=== PATIENT | male | born 2000 | race Caucasian/White ===

== ENCOUNTER 2018-11-04 11:17 | Emergency (ER) | payer SELFPAY ==
[~2018-11-04] VITALS: Ht 182.9 cm; Wt 54.4 kg
--- NOTE | 2018-11-04 11:34 | ED Abdominal Pain ---
General Chief Complaint: Abdominal/GI Problems Stated Complaint: ABD PAIN Source of Information: Patient, RN Notes Reviewed Exam Limitations: No Limitations History of Present Illness Date Seen by Provider: November 04, 2018 Time Seen by Provider: 11:34 Allergies and Home Medications Allergies Coded Allergies: rocuronium (Verified Allergy, Unknown, 11/04/18) Physical Exam Vital Signs Vital Signs - First Documented 11/04/18 11:50 Temp 99.2 Pulse 98 Resp 24 B/P (MAP) 92/50 Pulse Ox 100 O2 Delivery Room Air Capillary Refill : Height/Weight/BMI Height: '" Weight: lbs. oz. kg; BMI Method: Progress/Results/Core Measures Results/Orders Lab Results Laboratory Tests Test 11/04/18 11:45 11/04/18 12:44 Range/Units White Blood Count 5.6 4.3-11.0 10^3/uL Red Blood Count 4.77 4.35-5.85 10^6/uL Hemoglobin 14.3 13.3-17.7 G/DL Hematocrit 42 40-54 % Mean Corpuscular Volume 89 80-99 FL Mean Corpuscular Hemoglobin 30 25-34 PG Mean Corpuscular Hemoglobin Concent 34 32-36 G/DL Red Cell Distribution Width 12.3 10.0-14.5 % Platelet Count 261 130-400 10^3/uL Mean Platelet Volume 9.4 7.4-10.4 FL Neutrophils (%) (Auto) 63 42-75 % Lymphocytes (%) (Auto) 21 12-44 % Monocytes (%) (Auto) 11 0-12 % Eosinophils (%) (Auto) 4 0-10 % Basophils (%) (Auto) 1 0-10 % Neutrophils # (Auto) 3.5 1.8-7.8 X 10^3 Lymphocytes # (Auto) 1.2 1.0-4.0 X 10^3 Monocytes # (Auto) 0.6 0.0-1.0 X 10^3 Eosinophils # (Auto) 0.3 0.0-0.3 10^3/uL Basophils # (Auto) 0.0 0.0-0.1 10^3/uL Sodium Level 143 135-145 MMOL/L Potassium Level 4.2 3.6-5.0 MMOL/L Chloride Level 105 98-107 MMOL/L Carbon Dioxide Level 28 21-32 MMOL/L Anion Gap 10 5-14 MMOL/L Blood Urea Nitrogen 9 7-18 MG/DL Creatinine 0.78 0.60-1.30 MG/DL Estimat Glomerular Filtration Rate > 60 BUN/Creatinine Ratio 12 Glucose Level 94 70-105 MG/DL Calcium Level 9.4 8.5-10.1 MG/DL Corrected Calcium 8.5-10.1 MG/DL Total Bilirubin 0.4 0.1-1.0 MG/DL Aspartate Amino Transf (AST/SGOT) 12 5-34 U/L Alanine Aminotransferase (ALT/SGPT) 8 0-55 U/L Alkaline Phosphatase 116 40-136 U/L Total Protein 6.8 6.4-8.2 GM/DL Albumin 4.8 H 3.2-4.5 GM/DL Urine Color YELLOW Urine Clarity CLEAR Urine pH 7.5 5-9 Urine Specific [place] 1.010 L 1.016-1.022 Urine Protein NEGATIVE NEGATIVE Urine Glucose (UA) NEGATIVE NEGATIVE Urine Ketones NEGATIVE NEGATIVE Urine Nitrite NEGATIVE NEGATIVE Urine Bilirubin NEGATIVE NEGATIVE Urine Urobilinogen 0.2 NORMAL MG/DL Urine Leukocyte Esterase NEGATIVE NEGATIVE Urine RBC (Auto) NEGATIVE NEGATIVE Urine RBC NONE /HPF Urine WBC NONE /HPF Urine Squamous Epithelial Cells RARE /HPF Urine Crystals NONE /LPF Urine Bacteria NONE /HPF Urine Casts NONE /LPF Urine Mucus NEGATIVE /LPF Urine Culture Indicated NO Urine Opiates Screen NEGATIVE NEGATIVE Urine Oxycodone Screen NEGATIVE NEGATIVE Urine Methadone Screen NEGATIVE NEGATIVE Urine Propoxyphene Screen NEGATIVE NEGATIVE Urine Barbiturates Screen NEGATIVE NEGATIVE Ur Tricyclic Antidepressants Screen NEGATIVE NEGATIVE Urine Phencyclidine Screen NEGATIVE NEGATIVE Urine Amphetamines Screen NEGATIVE NEGATIVE Urine Methamphetamines Screen NEGATIVE NEGATIVE Urine Benzodiazepines Screen NEGATIVE NEGATIVE Urine Cocaine Screen NEGATIVE NEGATIVE Urine Cannabinoids Screen POSITIVE H NEGATIVE My Orders Orders - LAURA GARCIA DO Cbc With Automated Diff (11/04/18 11:35) Comprehensive Metabolic Panel (11/04/18 11:35) Ua Culture If Indicated (11/04/18 11:35) Ed Iv/Invasive Line Start (11/04/18 11:35) Lactated Ringers (Lr 1000 Ml Iv Solution (11/04/18 11:45) Drug Screen Stat (Urine) (11/04/18 12:39) Ketorolac Injection (Toradol Injection) (11/04/18 12:45) Ct Abdomen/Pelvis Wo (11/04/18 12:46) Medications Given in ED Current Medications Medications Dose Ordered Sig/Tavo Route Start Time Stop Time Status Last Admin Dose Admin Ketorolac Tromethamine 15 mg ONCE ONCE IVP 11/04/18 12:45 11/04/18 12:46 DC 11/04/18 13:00 15 MG Vital Signs/I&O 11/04/18 11:50 Temp 99.2 Pulse 98 Resp 24 B/P (MAP) 92/50 Pulse Ox 100 O2 Delivery Room Air Departure Impression Primary Impression: Abdominal pain in male Additional Impression: Metallic foreign body colon Disposition: HOME, SELF-CARE Condition: Improved Departure-Patient Inst. Referrals: NO,LOCAL PHYSICIAN (PCP/Family) Primary Care Physician Patient Instructions: Acute Abdomen (Belly Pain), Adult (DC) Scripts Meloxicam (Mobic) 7.5 Mg Tablet 7.5 MG PO Q12H PRN for ABDOMINAL PAIN, #20 TAB 0 Refills Prov: LAURA GARCIA DO 11/04/18 LAURA GARCIA DO November 04, 2018 11:34
[2018-11-04] MEDS ORDERED: LACTATED RINGERS 1,000 ML IV SCH (11:45)
[2018-11-04 11:59] LABS: HEMATOCRIT 42 % (40-54); HEMOGLOBIN 14.3 G/DL (13.3-17.7); MEAN CORPUSCULAR HEMOGLOBIN 30 PG (25-34); MEAN CORPUSCULAR HGB CONC 34 G/DL (32-36); MEAN CORPUSCULAR VOLUME 89 FL (80-99); MEAN PLATELET VOLUME 9.4 FL (7.4-10.4); NEUTROPHILS % (AUTO) 63 % (42-75); PLATELET COUNT 261 10^3/uL (130-400); RED CELL DISTRIBUTION WIDTH 12.3 % (10.0-14.5); WHITE BLOOD COUNT 5.6 10^3/uL (4.3-11.0)
[2018-11-04 12:00] LABS: BASOPHILS % (AUTO) 1 % (0-10); EOSINOPHILS # (AUTO) 0.3 10^3/uL (0.0-0.3); EOSINOPHILS % (AUTO) 4 % (0-10); LYMPHOCYTES # (AUTO) 1.2 X 10^3 (1.0-4.0); LYMPHOCYTES % (AUTO) 21 % (12-44); MONOCYTES # (AUTO) 0.6 X 10^3 (0.0-1.0); MONOCYTES % (AUTO) 11 % (0-12); NEUTROPHILS # (AUTO) 3.5 X 10^3 (1.8-7.8)
[2018-11-04 12:21] LABS: ALANINE AMINOTRANSFERASE 8 U/L (0-55); ALKALINE PHOSPHATASE 116 U/L (40-136); BILIRUBIN,TOTAL 0.4 MG/DL (0.1-1.0); BUN/CREATININE RATIO 12; CALCIUM 9.4 MG/DL (8.5-10.1); CARBON DIOXIDE 28 MMOL/L (21-32); CHLORIDE 105 MMOL/L (98-107); CREATININE SERUM 0.78 MG/DL (0.60-1.30); GFR ESTIMATED > 60; GLUCOSE 94 MG/DL (70-105); POTASSIUM 4.2 MMOL/L (3.6-5.0); SODIUM 143 MMOL/L (135-145)
[2018-11-04 12:22] LABS: ALBUMIN 4.8 GM/DL (3.2-4.5); TOTAL PROTEIN 6.8 GM/DL (6.4-8.2)
[2018-11-04] MEDS ORDERED: KETOROLAC 30 MG/ML VIAL IVP ONE (12:45)
[2018-11-04 13:02] LABS: AMPHETAMINE SCREEN, URINE NEGATIVE (NEGATIVE); BARBITURATE SCREEN URINE NEGATIVE (NEGATIVE); BENZODIAZEPINES SCREEN URINE NEGATIVE (NEGATIVE); BILIRUBIN,URINE NEGATIVE (NEGATIVE); CANNABINOID SCREEN, URINE POSITIVE (NEGATIVE); CLARITY,URINE CLEAR; COCAINE SCREEN URINE NEGATIVE (NEGATIVE); COLOR,URINE YELLOW; GLUCOSE, URINE (UA) NEGATIVE (NEGATIVE); KETONES,URINE NEGATIVE (NEGATIVE); LEUKOCYTE ESTERASE ,URINE NEGATIVE (NEGATIVE); METHADONE STAT NEGATIVE (NEGATIVE); METHAMPHETAMINE SCREEN URINE S NEGATIVE (NEGATIVE); NITRITE,URINE NEGATIVE (NEGATIVE); OPIATE SCREEN URINE NEGATIVE (NEGATIVE); OXYCODONE STAT NEGATIVE (NEGATIVE); PH,URINE 7.5 (5-9); PROPOXYPHENE STAT NEGATIVE (NEGATIVE); PROTEIN,URINE NEGATIVE (NEGATIVE); SQUAMOUS EPITHELIAL CELL,UR RARE /HPF; TRICYCLIC ANTIDEPRESSANTS SCRE NEGATIVE (NEGATIVE); UROBILINOGEN,URINE 0.2 MG/DL (NORMAL)
--- NOTE | 2018-11-04 13:41 | Diagnostic Imaging Report ---
PROCEDURE: CT abdomen and pelvis without contrast. TECHNIQUE: Multiple contiguous axial images were obtained through the abdomen and pelvis without the use of intravenous contrast. Auto Exposure Controls were utilized during the CT exam to meet ALARA standards for radiation dose reduction. INDICATION: Central and left abdominal pain. FINDINGS: Lung bases are clear. The heart is normal in size. There is mild pectus excavatum. The liver demonstrates no focal lesions. The spleen is normal. The pancreas is normal. The adrenal glands appear normal. The kidneys demonstrate no hydronephrosis. No renal calculi are seen. The bowel loops are nondistended without obstruction. The appendix is normal without evidence of appendicitis. There is a 5 mm metal density foreign body in the right lower quadrant of the abdomen, which appears to be within the cecum. The patient reports no prior surgeries. There is a small amount of free fluid in the pelvis. No focal bowel wall thickening is seen. No soft tissue gas is seen. No acute osseous abnormality is seen. IMPRESSION: 1. 5 mm metal foreign body in the right lower quadrant appears to be within the cecum. No bowel obstruction or bowel wall thickening is seen. 2. Small amount of free fluid in the pelvis. No source is seen. There is no free air. 3. Mild pectus excavatum. Dictated by: Dictated on workstation # [id number]
[2018-11-04] MEDS ORDERED: MELO-170 PO (14:02)
== END 2018-11-04 14:12 | disposition home or self-care (01) ==
LOC: EDUNIT# 11:17 → ER FS 11:19
DX: T18.4XXA Foreign body in colon, initial encounter (principal); R10.9 Unspecified abdominal pain; Z88.8 Allergy status to other drugs, medicaments and biological substances
CPT/HCPCS: 36415; 74176; 80053; 80306; 81000; 85025; 96361; 96374

== ENCOUNTER 2018-12-06 19:31 | Emergency (ER) | payer SELFPAY ==
[~2018-12-06] VITALS: Ht 182.9 cm; Wt 56.2 kg
[~2018-12-06 19:31] MED LIST: MELO-170 PO
--- OUTSIDE RECORDS SUMMARY | 2018-12-06 19:37 | XMS REPORT | Continuity of Care Document ---
Author Organization Unknown Address Unknown Allergies Active Description Code Type Severity Reaction Onset Reported/Identified Relationship to Patient Clinical Status Yes No Known Drug Allergies [id number] Drug Allergy Unknown N/A 11/04/2018 Yes rocuronium [id number] Drug Allergy Unknown N/A 11/04/2018 Medications There is no data. Problems Date Dx Coded Attending Type Code Diagnosis Diagnosed By 11/07/2018 LAURA GARCIA DO, Ot R10.9 UNSPECIFIED ABDOMINAL PAIN 11/07/2018 LAURA GARCIA DO, Ot T18.4XXA FOREIGN BODY IN COLON, INITIAL ENCOUNTER 11/07/2018 LAURA GARCIA DO, Ot Z88.8 ALLERGY STATUS TO OTH DRUG/MEDS/BIOL SUB Procedures There is no data. Results Test Result Range Complete blood count (CBC) with automated white blood cell (WBC) differential - 11/04/18 11:45 Blood leukocytes automated count (number/volume) 5.6 10*3/uL 4.3-11.0 Blood erythrocytes automated count (number/volume) 4.77 10*6/uL 4.35-5.85 Venous blood hemoglobin measurement (mass/volume) 14.3 g/dL 13.3-17.7 Blood hematocrit (volume fraction) 42 % 40-54 Automated erythrocyte mean corpuscular volume 89 [foz_us] 80-99 Automated erythrocyte mean corpuscular hemoglobin (mass per erythrocyte) 30 pg 25-34 Automated erythrocyte mean corpuscular hemoglobin concentration measurement (mass/volume) 34 g/dL 32-36 Automated erythrocyte distribution width ratio 12.3 % 10.0- 14.5 Automated blood platelet count (count/volume) 261 10*3/uL 130-400 Automated blood platelet mean volume measurement 9.4 [foz_us] 7.4-10.4 Automated blood neutrophils/100 leukocytes 63 % 42-75 Automated blood lymphocytes/100 leukocytes 21 % 12-44 Blood monocytes/100 leukocytes 11 % 0-12 Automated blood eosinophils/100 leukocytes 4 % 0-10 Automated blood basophils/100 leukocytes 1 % 0-10 Blood neutrophils automated count (number/volume) 3.5 10*3 1.8-7.8 Blood lymphocytes automated count (number/volume) 1.2 10*3 1.0-4.0 Blood monocytes automated count (number/volume) 0.6 10*3 0.0- 1.0 Automated eosinophil count 0.3 10*3/uL 0.0-0.3 Automated blood basophil count (count/volume) 0.0 10*3/uL 0.0-0.1 Comprehensive metabolic panel - 11/04/18 11:45 Serum or plasma sodium measurement (moles/volume) 143 mmol/L 135-145 Serum or plasma potassium measurement (moles/volume) 4.2 mmol/L 3.6-5.0 Serum or plasma chloride measurement (moles/volume) 105 mmol/L 98-107 Carbon dioxide 28 mmol/L 21-32 Serum or plasma anion gap determination (moles/volume) 10 mmol/L 5-14 Serum or plasma urea nitrogen measurement (mass/volume) 9 mg/dL 7-18 Serum or plasma creatinine measurement (mass/volume) 0.78 mg/dL 0.60-1.30 Serum or plasma urea nitrogen/creatinine mass ratio 12 NRG Serum or plasma creatinine measurement with calculation of estimated glomerular filtration rate > NRG Serum or plasma glucose measurement (mass/volume) 94 mg/dL 70-105 Serum or plasma calcium measurement (mass/volume) 9.4 mg/dL 8.5-10.1 Serum or plasma total bilirubin measurement (mass/volume) 0.4 mg/dL 0.1-1.0 Serum or plasma alkaline phosphatase measurement (enzymatic activity/volume) 116 U/L 40-136 Serum or plasma aspartate aminotransferase measurement (enzymatic activity/volume) 12 U/L 5-34 Serum or plasma alanine aminotransferase measurement (enzymatic activity/volume) 8 U/L 0-55 Serum or plasma protein measurement (mass/volume) 6.8 g/dL 6.4-8.2 Serum or plasma albumin measurement (mass/volume) 4.8 g/dL 3.2-4.5 Urine drug screening test - 11/04/18 12:44 Urine phencyclidine detection by screening method NEGATIVE NEGATIVE Urine benzodiazepines detection by screening method NEGATIVE NEGATIVE Urine cocaine detection NEGATIVE NEGATIVE Urine amphetamines detection by screening method NEGATIVE NEGATIVE Urine methamphetamine detection by screening method NEGATIVE NEGATIVE Urine cannabinoids detection by screening method POSITIVE NEGATIVE Urine opiates detection by screening method NEGATIVE NEGATIVE Urine barbiturates detection NEGATIVE NEGATIVE Screening urine tricyclic antidepressants detection NEGATIVE NEGATIVE Urine methadone detection by screening method NEGATIVE NEGATIVE Urine oxycodone detection NEGATIVE NEGATIVE Urine propoxyphene detection NEGATIVE NEGATIVE Complete urinalysis with reflex to culture - 11/04/18 12:44 Urine color determination YELLOW NRG Urine clarity determination CLEAR NRG Urine pH measurement by test strip 7.5 5-9 Specific gravity of urine by test strip 1.010 1.016-1.022 Urine protein assay by test strip, semi-quantitative NEGATIVE NEGATIVE Urine glucose detection by automated test strip NEGATIVE NEGATIVE Erythrocytes detection in urine sediment by light microscopy NEGATIVE NEGATIVE Urine ketones detection by automated test strip NEGATIVE NEGATIVE Urine nitrite detection by test strip NEGATIVE NEGATIVE Urine total bilirubin detection by test strip NEGATIVE NEGATIVE Urine urobilinogen measurement by automated test strip (mass/volume) 0.2 mg/dL NORMAL Urine leukocyte esterase detection by dipstick NEGATIVE NEGATIVE Automated urine sediment erythrocyte count by microscopy (number/high power field) NONE NRG Automated urine sediment leukocyte count by microscopy (number/high power field) NONE NRG Bacteria detection in urine sediment by light microscopy NONE NRG Squamous epithelial cells detection in urine sediment by light microscopy RARE NRG Crystals detection in urine sediment by light microscopy NONE NRG Casts detection in urine sediment by light microscopy NONE NRG Mucus detection in urine sediment by light microscopy NEGATIVE NRG Complete urinalysis with reflex to culture NO NRG Encounters ACCT No. Visit Date/Time Discharge Status Pt. Type Provider Facility Loc./Unit Complaint [id number] 11/04/2018 11:19:00 11/04/2018 14:12:00 DIS Outpatient LAURA GARCIA DO [facility] ER FS ABD PAIN
--- NOTE | 2018-12-06 19:46 | ED GU-Female ---
General Chief Complaint: - Urinary Stated Complaint: URINARY PAIN Source: patient Exam Limitations: no limitations History of Present Illness Date Seen by Provider: Dec 06, 2018 Time Seen by Provider: 19:50 Initial Comments 17-year-old male presents with dysuria. He reports been gone about 3-4 days. Reports he has burning and stinging every time he urinates or ejaculates. He denies any fever,, nausea, vomiting, swelling of his scrotum or testicular pain. He denies any STD exposure. Allergies and Home Medications Allergies Coded Allergies: rocuronium (Verified Allergy, Unknown, 11/04/18) Home Medications Doxycycline Hyclate 100 Mg Tablet, 100 MG PO BID Prescribed by: JANINA ALCANTAR on 12/06/182018 Meloxicam 7.5 Mg Tablet, 7.5 MG PO Q12H PRN for ABDOMINAL PAIN Prescribed by: LAURA GARCIA on 11/04/18 1402 Patient Home Medication List Home Medication List Reviewed: Yes Review of Systems Review of Systems Constitutional: No chills, No fever Genitourinary: dysuria, pain All Other Systemes Reviewed Negative Unless Noted: Yes Past Vbjnalf-Cstaag-Udmohl Hx Past Med/Social Hx: Reviewed Nursing Past Med/Soc Hx Patient Social History Recent Hopitalizations: No Seasonal Allergies Seasonal Allergies: No Past Medical History Surgeries: No Respiratory: No Cardiac: No Neurological: No Genitourinary: No Gastrointestinal: No Musculoskeletal: No Endocrine: No HEENT: No Cancer: No Psychosocial: Yes Depression Integumentary: No Physical Exam Vital Signs Vital Signs - First Documented 12/06/18 19:40 Temp 97.1 Pulse 65 Resp 16 B/P (MAP) 110/55 Pulse Ox 100 O2 Delivery Room Air Capillary Refill : Height, Weight, BMI Height: 6'0" Weight: 120lbs. oz. [id number]; 16.27 BMI Method:Stated General Appearance: WD/WN, no apparent distress Cardiovascular: regular rate, rhythm, no edema Respiratory: chest non-tender Gastrointestinal: non tender Back: no CVA tenderness Extremities: normal range of motion, non-tender Neurologic/Psychiatric: site leasing agent II-XII nml as tested, no motor/sensory deficits, alert, oriented x 3 Progress/Results/Core Measures Suspected Sepsis SIRS Temperature: Pulse: Respiratory Rate: Blood Pressure / Mean: Results/Orders Lab Results Laboratory Tests Test 12/06/18 19:40 Range/Units Urine Color YELLOW Urine Clarity CLEAR Urine pH 6.0 5-9 Urine Specific [place] 1.025 H 1.016-1.022 Urine Protein NEGATIVE NEGATIVE Urine Glucose (UA) NEGATIVE NEGATIVE Urine Ketones NEGATIVE NEGATIVE Urine Nitrite NEGATIVE NEGATIVE Urine Bilirubin NEGATIVE NEGATIVE Urine Urobilinogen 0.2 NORMAL MG/DL Urine Leukocyte Esterase NEGATIVE NEGATIVE Urine RBC (Auto) NEGATIVE NEGATIVE Urine RBC 0-2 /HPF Urine WBC 5-10 H /HPF Urine Squamous Epithelial Cells 0-2 /HPF Urine Crystals NONE /LPF Urine Bacteria FEW H /HPF Urine Casts NONE /LPF Urine Mucus MODERATE H /LPF Urine Culture Indicated YES My Orders Orders - ALCANTAR,JANINA L DO Chlamydia Trachomatis Urine (12/06/18 19:46) Neis Andrei Dna Urine Test (12/06/18 19:46) Ua Culture If Indicated (12/06/18 19:46) Urine Culture (12/06/18 19:40) Ceftriaxone For Im Use (Rocephin For Im (12/07/18 09:00) Lidocaine 1% Inj 20 Ml (Xylocaine 1% Inj (12/06/18 20:15) Ceftriaxone For Im Use (Rocephin For Im (12/06/18 20:15) Medications Given in ED Current Medications Medications Dose Ordered Sig/Tavo Route Start Time Stop Time Status Last Admin Dose Admin Lidocaine HCl 2.1 ml ONCE ONCE INJ 12/06/18 20:15 12/06/18 20:16 DC 12/06/18 20:25 2.1 ML Vital Signs/I&O 12/06/18 12/06/18 19:40 20:29 Temp 97.1 Pulse 65 65 Resp 16 18 B/P (MAP) 110/55 Pulse Ox 100 100 O2 Delivery Room Air Room Air Capillary Refill : Departure Impression Primary Impression: Urinary tract infection Qualified Codes: N39.0 - Urinary tract infection, site not specified Additional Impression: Orchitis and epididymitis Disposition: 01 HOME, SELF-CARE Condition: Stable Departure-Patient Inst. Referrals: NO,LOCAL PHYSICIAN (PCP/Family) Primary Care Physician Patient Instructions: Epididymitis (DC), Urinary Tract Infection, Adult (DC) Scripts Doxycycline Hyclate (Doxycycline Hyclate) 100 Mg Tablet 100 MG PO BID, #20 TAB 0 Refills Prov: ALCANTAR,JANINA L DO 12/06/18 JANINA ALCANTAR DO Dec 06, 2018 19:46
[2018-12-06 20:06] LABS: BILIRUBIN,URINE NEGATIVE (NEGATIVE); CLARITY,URINE CLEAR; COLOR,URINE YELLOW; GLUCOSE, URINE (UA) NEGATIVE (NEGATIVE); KETONES,URINE NEGATIVE (NEGATIVE); LEUKOCYTE ESTERASE ,URINE NEGATIVE (NEGATIVE); NITRITE,URINE NEGATIVE (NEGATIVE); PROTEIN,URINE NEGATIVE (NEGATIVE); RBC,URINE 0-2 /HPF; UROBILINOGEN,URINE 0.2 MG/DL (NORMAL)
[2018-12-06 20:07] LABS: BACTERIA,URINE FEW /HPF; SQUAMOUS EPITHELIAL CELL,UR 0-2 /HPF
[2018-12-06] MEDS ORDERED: LIDOCAINE 1% INJ 20 ML 20 ML VIAL INJ ONE (20:15)
[2018-12-06] MEDS ORDERED: cefTRIAXone 1,000 MG/2.86 ml vial (IM ONLY) ONE (20:15)
[2018-12-06] MEDS ORDERED: DOXY100T2 PO (20:19)
[2018-12-07] MEDS ORDERED: cefTRIAXone 1,000 MG/2.86 ml vial (IM ONLY) IM SCH (09:00)
== END 2018-12-06 20:30 | disposition home or self-care (01) ==
LOC: EDUNIT# 19:31 → ER FS 19:32
DX: N39.0 Urinary tract infection, site not specified (principal); N45.3 Epididymo-orchitis; F32.9 Major depressive disorder, single episode, unspecified; Z88.8 Allergy status to other drugs, medicaments and biological substances
CPT/HCPCS: 36415; 81000; 87088; 87491; 87591; 99284

== ENCOUNTER 2019-01-25 20:36 | Emergency (ER) | payer SELFPAY ==
[~2019-01-25] VITALS: Ht 177.8 cm; Wt 56.7 kg
[~2019-01-25 20:36] MED LIST changes: +DOXY100T2 PO
[2019-01-25] MEDS ORDERED: FAMOTIDINE 20 MG (PEPCID) TABLET PO STA (20:46)
[2019-01-25] MEDS ORDERED: LACTATED RINGERS 1,000 ML IV ONE (20:46)
--- NOTE | 2019-01-25 20:54 | ED Abdominal Pain ---
General Chief Complaint: Chest Pain Stated Complaint: CHEST PAIN,WEAKNESS,DIZZINESS Source of Information: Patient, Other Exam Limitations: No Limitations History of Present Illness Date Seen by Provider: Jan 25, 2019 Time Seen by Provider: 20:40 Initial Comments The patient resents to ER by private conveyance with his significant other and chief complaint that he's not felt well for the past day or so and since 6:00 he's been having nausea without vomiting and abdominal pain indicating between his epigastric region and suprapubic region midline. He says he had a normal bowel movement earlier this morning. He does not have constipation, diarrhea fevers chills cough shortness of breath. He has no history of abdominal surgeries or recent trauma. No sick contacts that he is aware of. He does not take anything for the symptoms. He does not think he has a history of acid reflux, pancreatitis or gallbladder disease. He does not follow routinely with a physician for any reason. He does not take any medications routinely. He says he is having chest pain but continually indicates that his pain is in the abdominal region. Allergies and Home Medications Allergies Coded Allergies: rocuronium (Verified Allergy, Unknown, 11/04/18) Home Medications Doxycycline Hyclate 100 Mg Tablet, 100 MG PO BID Prescribed by: JANINA ALCANTAR on 12/06/182018 Meloxicam 7.5 Mg Tablet, 7.5 MG PO Q12H PRN for ABDOMINAL PAIN Prescribed by: LAURA GARCIA on 11/04/18 1402 Patient Home Medication List Home Medication List Reviewed: Yes Review of Systems Review of Systems Constitutional: No chills, No diaphoresis EENTM: No Blurred Vision, No Double Vision Respiratory: Denies Cough, Denies Shortness of Air Cardiovascular: Denies Chest Pain, Denies Edema Gastrointestinal: See HPI, Abdominal Pain; Denies Constipated, Denies Diarrhea; Nausea; Denies Vomiting Genitourinary: Denies Burning, Denies Discharge Musculoskeletal: No back pain, No joint pain Past Oygclhd-Tqqkle-Qkdaba Hx Patient Social History Alcohol Use: Occasionally Uses Alcohol Beverage of Choice: Beer, Cheap Liquor Recreational Drug Use: Yes Drug of Choice: Occ MJ Smoking Status: Current Everyday Smoker Type Used: Cigarettes Recent Foreign Travel: No Contact w/Someone Who Travel: No Recent Hopitalizations: No Seasonal Allergies Seasonal Allergies: No Past Medical History Surgeries: No Respiratory: No Cardiac: No Neurological: No Genitourinary: No Gastrointestinal: No Musculoskeletal: No Endocrine: No HEENT: No Cancer: No Psychosocial: Yes Depression Integumentary: No Blood Disorders: No Physical Exam Vital Signs Vital Signs - First Documented 01/25/19 20:40 Temp 98.1 Pulse 68 Resp 16 B/P (MAP) 120/73 (89) Pulse Ox 100 O2 Delivery Room Air Capillary Refill : Height/Weight/BMI Height: 6'0" Weight: 124lbs. oz. [id number]; 16.82 BMI Method:Stated General Appearance: WD/WN, mild distress HEENT: PERRL/EOMI, normal ENT inspection, pharynx normal Neck: full range of motion, normal inspection Respiratory: chest non-tender, lungs clear, normal breath sounds, no respiratory distress, no accessory muscle use, other (pectus excavatum) Cardiovascular: normal peripheral pulses, regular rate, rhythm, no edema Peripheral Pulses: 2+ Radial Pulses (R), 2+ Radial Pulses (L) Gastrointestinal: normal bowel sounds (quiescent), guarding, tenderness (all 4 quadrants), other (psoas sign bilaterally positive. No other mesenteric signs.) Extremities: normal inspection, normal capillary refill Back: normal inspection, no CVA tenderness, no vertebral tenderness Neurologic/Psychiatric: alert, normal mood/affect, oriented x 3, other (normal gait) Skin: normal color, warm/dry Progress/Results/Core Measures Results/Orders Lab Results Laboratory Tests Test 01/25/19 20:42 Range/Units White Blood Count 8.7 4.3-11.0 10^3/uL Red Blood Count 5.00 4.35-5.85 10^6/uL Hemoglobin 14.9 13.3-17.7 G/DL Hematocrit 45 40-54 % Mean Corpuscular Volume 89 80-99 FL Mean Corpuscular Hemoglobin 30 25-34 PG Mean Corpuscular Hemoglobin Concent 33 32-36 G/DL Red Cell Distribution Width 12.4 10.0-14.5 % Platelet Count 290 130-400 10^3/uL Mean Platelet Volume 9.2 7.4-10.4 FL Neutrophils (%) (Auto) 49 42-75 % Lymphocytes (%) (Auto) 31 12-44 % Monocytes (%) (Auto) 9 0-12 % Eosinophils (%) (Auto) 10 0-10 % Basophils (%) (Auto) 1 0-10 % Neutrophils # (Auto) 4.3 1.8-7.8 X 10^3 Lymphocytes # (Auto) 2.7 1.0-4.0 X 10^3 Monocytes # (Auto) 0.8 0.0-1.0 X 10^3 Eosinophils # (Auto) 0.9 H 0.0-0.3 10^3/uL Basophils # (Auto) 0.1 0.0-0.1 10^3/uL Urine Color YELLOW Urine Clarity CLEAR Urine pH 6.0 5-9 Urine Specific [place] 1.025 H 1.016-1.022 Urine Protein NEGATIVE NEGATIVE Urine Glucose (UA) NEGATIVE NEGATIVE Urine Ketones NEGATIVE NEGATIVE Urine Nitrite NEGATIVE NEGATIVE Urine Bilirubin NEGATIVE NEGATIVE Urine Urobilinogen 0.2 NORMAL MG/DL Urine Leukocyte Esterase NEGATIVE NEGATIVE Urine RBC (Auto) NEGATIVE NEGATIVE Urine RBC NONE /HPF Urine WBC 0-2 /HPF Urine Squamous Epithelial Cells 2-5 /HPF Urine Crystals NONE /LPF Urine Bacteria NEGATIVE /HPF Urine Casts NONE /LPF Urine Mucus MODERATE H /LPF Urine Culture Indicated NO Sodium Level 142 135-145 MMOL/L Potassium Level 4.0 3.6-5.0 MMOL/L Chloride Level 99 98-107 MMOL/L Carbon Dioxide Level 28 21-32 MMOL/L Anion Gap 15 H 5-14 MMOL/L Blood Urea Nitrogen 12 7-18 MG/DL Creatinine 0.92 0.60-1.30 MG/DL Estimat Glomerular Filtration Rate > 60 BUN/Creatinine Ratio 13 Glucose Level 105 70-105 MG/DL Calcium Level 9.9 8.5-10.1 MG/DL Corrected Calcium 8.5-10.1 MG/DL Magnesium Level 2.0 1.6-2.4 MG/DL Total Bilirubin 0.3 0.1-1.0 MG/DL Aspartate Amino Transf (AST/SGOT) 15 5-34 U/L Alanine Aminotransferase (ALT/SGPT) 11 0-55 U/L Alkaline Phosphatase 119 40-136 U/L Total Protein 7.6 6.4-8.2 GM/DL Albumin 4.8 H 3.2-4.5 GM/DL Lipase 36 8-78 U/L Urine Opiates Screen NEGATIVE NEGATIVE Urine Oxycodone Screen NEGATIVE NEGATIVE Urine Methadone Screen NEGATIVE NEGATIVE Urine Propoxyphene Screen NEGATIVE NEGATIVE Urine Barbiturates Screen NEGATIVE NEGATIVE Ur Tricyclic Antidepressants Screen NEGATIVE NEGATIVE Urine Phencyclidine Screen NEGATIVE NEGATIVE Urine Amphetamines Screen NEGATIVE NEGATIVE Urine Methamphetamines Screen NEGATIVE NEGATIVE Urine Benzodiazepines Screen NEGATIVE NEGATIVE Urine Cocaine Screen NEGATIVE NEGATIVE Urine Cannabinoids Screen POSITIVE H NEGATIVE My Orders Orders - SAMANTA SERRA Cbc With Automated Diff (01/25/19 20:46) Comprehensive Metabolic Panel (01/25/19 20:46) Drug Screen Stat (Urine) (01/25/19 20:46) Lipase (01/25/19 20:46) Magnesium (01/25/19 20:46) Ua Culture If Indicated (01/25/19 20:46) Chest Pa/Lat (2 View) (01/25/19 20:46) Ed Iv/Invasive Line Start (01/25/19 20:46) Lactated Ringers (Lr 1000 Ml Iv Solution (01/25/19 20:46) Lidocaine 2% Viscous 15 Ml (Xylocaine Vi (01/25/19 21:00) Famotidine Tablet (Pepcid Tablet) (01/25/19 20:46) Antacid Suspension (Mylanta Suspension (01/25/19 21:00) Ondansetron Injection (Zofran Injectio (01/25/19 21:00) Medications Given in ED Current Medications Medications Dose Ordered Sig/Tavo Route Start Time Stop Time Status Last Admin Dose Admin Al Hydrox/Mg Hydrox/Simethicone 30 ml ONCE ONCE PO 01/25/19 21:00 01/25/19 21:01 DC 01/25/19 20:57 30 ML Lactated Ringer's 1,000 ml @ 0 mls/hr Q0M ONCE IV 01/25/19 20:46 01/25/19 20:49 DC 01/25/19 20:57 999 MLS/HR Lidocaine HCl 15 ml ONCE ONCE PO 01/25/19 21:00 01/25/19 21:01 DC 01/25/19 20:57 15 ML Ondansetron HCl 4 mg ONCE ONCE IVP 01/25/19 21:00 01/25/19 21:01 DC 01/25/19 20:57 4 MG Vital Signs/I&O 01/25/19 20:40 Temp 98.1 Pulse 68 Resp 16 B/P (MAP) 120/73 (89) Pulse Ox 100 O2 Delivery Room Air Progress Progress Note #1: Time: 20:52 Progress Note Vital signs are normal but his pain is sharp stabbing intermittent and he's having a tenderness belly that it would be reasonable to obtain labs and entertain imaging. We'll start with a GI cocktail. If that does not help then we'll trial Toradol. Plan to give him Zofran and a liter of lactated Ringer's as dehydration working at [employer] is also in the differential. Urinalysis, drug screen and will plan to reexamine. His chest is not tender and he has good breath sounds bilaterally with good vital signs but he does have a history of this family having pneumothoraces so a chest x-ray can rule out a referred pain. Progress Note #2: Time: 21:21 Progress Note GI cocktail significantly improved his pain. He's no longer having nausea after using Zofran. Perhaps is GI related. We'll give him some Toradol also get some rest tonight put him on omeprazole for a couple weeks and give him a prescription for Zofran. Instructions follow-up with primary care if not seeing improvement by Saturday. Diagnostic Imaging Diagonstic Imaging: Xray Plain Films/CT/US/NM/MRI: chest (2v) Comments NAME: TORY LIMA MED REC#: [id number] PT STATUS: REG ER : 2000 PHYSICIAN: SAMANTA SERRA MD ADMIT DATE: 01/25/19/ER FS Signed Date of Exam:01/25/19 CHEST PA/LAT (2 VIEW) INDICATION: Epigastric pain COMPARISON: None. FINDINGS: Frontal and lateral views the chest demonstrate clear lungs bilaterally. The heart size is normal. There is no pneumothorax. Osseous structures are normal. IMPRESSION: No acute findings. Normal chest. Dictated by: Dictated on workstation # [id number] Dict: 01/25/192099 Trans: 01/25/192099 [facility] [phone] Interpreted by: SHAY GARCIA Electronically signed by: SHAY GARCIA 01/25/192099 Reviewed: Reviewed by Me Departure Impression Primary Impression: Gastroenteritis Additional Impression: Gastritis Qualified Codes: K29.00 - Acute gastritis without bleeding Disposition: 01 HOME, SELF-CARE Condition: Improved Departure-Patient Inst. Decision time for Depature: 21:22 Referrals: MIGUEL WHITMORE MD NO,LOCAL PHYSICIAN (PCP) Primary Care Physician Patient Instructions: Gastritis (DC) Add. Discharge Instructions: If you have pain you some Tums, Rolaids or Mylanta and try Tylenol 1000 mg every 8 hours in addition to ibuprofen 800 mg every 8 hours when needed. security shift supervisor the omeprazole and take 40 mg tablet daily for the next 2 weeks. If you have nausea then please take one tablet of Zofran/ondansetron and place under your tongue every 6 hours as needed. If you're not seeing improvement by Saturday, 3 days from now please plan to fo llow up with your primary care doctor for further evaluation. If you develop severe, intractable pain, nausea or fever especially above 102.5F then you should consider returning to the ER for further evaluation. All discharge instructions reviewed with patient and/or family. Voiced understanding. Scripts Ondansetron (Ondansetron Odt) 4 Mg Tab.rapdis 4 MG PO Q6H PRN for NAUSEA/VOMITING, #8 TAB 0 Refills Prov: SAMANTA SERRA 01/25/19 Omeprazole (Omeprazole) 40 Mg Capsule.dr 40 MG PO DAILY for 14 Days, #14 CAP 0 Refills Prov: SAMANTA SERRA 01/25/19 Work/School Note: Work Release Form Date Seen in the Emergency Department: Jan 25, 2019 Return to Work: Jan 26, 2019 Restrictions: No Restrictions SAMANTA SERRA Jan 25, 2019 20:54
[2019-01-25] MEDS ORDERED: ONDANSETRON 4 MG/2 ML (SDV) Z0FRAN IVP ONE (21:00)
[2019-01-25] MEDS ORDERED: LIDOCAINE 2% VISCOUS 15 ML UDC PO ONE (21:00)
[2019-01-25] MEDS ORDERED: ANTACID SUSP 30 ML UDC (MYLANTA) PO ONE (21:00)
--- NOTE | 2019-01-25 21:03 | Diagnostic Imaging Report ---
INDICATION: Epigastric pain COMPARISON: None. FINDINGS: Frontal and lateral views the chest demonstrate clear lungs bilaterally. The heart size is normal. There is no pneumothorax. Osseous structures are normal. IMPRESSION: No acute findings. Normal chest. Dictated by: Dictated on workstation # [id number]
[2019-01-25 21:08] LABS: BACTERIA,URINE NEGATIVE /HPF; BILIRUBIN,URINE NEGATIVE (NEGATIVE); CLARITY,URINE CLEAR; COLOR,URINE YELLOW; GLUCOSE, URINE (UA) NEGATIVE (NEGATIVE); KETONES,URINE NEGATIVE (NEGATIVE); LEUKOCYTE ESTERASE ,URINE NEGATIVE (NEGATIVE); NITRITE,URINE NEGATIVE (NEGATIVE); PROTEIN,URINE NEGATIVE (NEGATIVE); UROBILINOGEN,URINE 0.2 MG/DL (NORMAL); WBC,URINE 0-2 /HPF
[2019-01-25 21:09] LABS: HEMATOCRIT 45 % (40-54); HEMOGLOBIN 14.9 G/DL (13.3-17.7); LYMPHOCYTES % (AUTO) 31 % (12-44); MEAN CORPUSCULAR HEMOGLOBIN 30 PG (25-34); MEAN CORPUSCULAR HGB CONC 33 G/DL (32-36); MEAN CORPUSCULAR VOLUME 89 FL (80-99); MEAN PLATELET VOLUME 9.2 FL (7.4-10.4); NEUTROPHILS % (AUTO) 49 % (42-75); PLATELET COUNT 290 10^3/uL (130-400); RED CELL DISTRIBUTION WIDTH 12.4 % (10.0-14.5); WHITE BLOOD COUNT 8.7 10^3/uL (4.3-11.0)
[2019-01-25 21:10] LABS: BASOPHILS # (AUTO) 0.1 10^3/uL (0.0-0.1); BASOPHILS % (AUTO) 1 % (0-10); EOSINOPHILS # (AUTO) 0.9 10^3/uL (0.0-0.3); EOSINOPHILS % (AUTO) 10 % (0-10); LYMPHOCYTES # (AUTO) 2.7 X 10^3 (1.0-4.0); MONOCYTES # (AUTO) 0.8 X 10^3 (0.0-1.0); MONOCYTES % (AUTO) 9 % (0-12); NEUTROPHILS # (AUTO) 4.3 X 10^3 (1.8-7.8)
[2019-01-25 21:12] LABS: AMPHETAMINE SCREEN, URINE NEGATIVE (NEGATIVE); BENZODIAZEPINES SCREEN URINE NEGATIVE (NEGATIVE); CANNABINOID SCREEN, URINE POSITIVE (NEGATIVE); COCAINE SCREEN URINE NEGATIVE (NEGATIVE); METHAMPHETAMINE SCREEN URINE S NEGATIVE (NEGATIVE)
[2019-01-25 21:13] LABS: BARBITURATE SCREEN URINE NEGATIVE (NEGATIVE); METHADONE STAT NEGATIVE (NEGATIVE); OPIATE SCREEN URINE NEGATIVE (NEGATIVE); OXYCODONE STAT NEGATIVE (NEGATIVE); PROPOXYPHENE STAT NEGATIVE (NEGATIVE); SODIUM 142 MMOL/L (135-145); TRICYCLIC ANTIDEPRESSANTS SCRE NEGATIVE (NEGATIVE)
[2019-01-25 21:14] LABS: ALANINE AMINOTRANSFERASE 11 U/L (0-55); ALBUMIN 4.8 GM/DL (3.2-4.5); ALKALINE PHOSPHATASE 119 U/L (40-136); BILIRUBIN,TOTAL 0.3 MG/DL (0.1-1.0); BUN/CREATININE RATIO 13; CALCIUM 9.9 MG/DL (8.5-10.1); CARBON DIOXIDE 28 MMOL/L (21-32); CHLORIDE 99 MMOL/L (98-107); CREATININE SERUM 0.92 MG/DL (0.60-1.30); GFR ESTIMATED > 60; GLUCOSE 105 MG/DL (70-105); LIPASE 36 U/L (8-78); TOTAL PROTEIN 7.6 GM/DL (6.4-8.2)
[2019-01-25] MEDS ORDERED: OMEP40CA36 PO (21:25)
[2019-01-25] MEDS ORDERED: ONDA4TAB11 PO (21:25)
[2019-01-25] MEDS ORDERED: KETOROLAC 30 MG/ML VIAL IVP ONE (21:30)
[2019-01-25 21:34] VITALS: BP 120/68
== END 2019-01-25 21:33 | disposition home or self-care (01) ==
LOC: EDUNIT# 20:36 → ER FS 20:37
DX: K52.9 Noninfective gastroenteritis and colitis, unspecified (principal); K29.70 Gastritis, unspecified, without bleeding; F17.210 Nicotine dependence, cigarettes, uncomplicated; Z88.8 Allergy status to other drugs, medicaments and biological substances
CPT/HCPCS: 36415; 71046; 80053; 80306; 81000; 83690; 83735; 85025

== ENCOUNTER 2019-02-04 19:54 | Emergency (ER) | payer SELFPAY ==
[~2019-02-04] VITALS: Ht 182.9 cm; Wt 56.7 kg
[~2019-02-04 19:54] MED LIST changes: +OMEP40CA36 PO; +ONDA4TAB11 PO
[2019-02-04] MEDS ORDERED: ONDANSETRON 4 MG (ZOFRAN) ORAL DISSOLVE TAB SL ONE (20:30)
[2019-02-04] MEDS ORDERED: HYOSCYAMINE 0.125 MG (LEVSIN) TAB SL ONE (20:30)
[2019-02-04] MEDS ORDERED: LACTATED RINGERS 1,000 ML IV ONE (20:47)
[2019-02-04 21:07] LABS: BASOPHILS % (AUTO) 1 % (0-10); EOSINOPHILS # (AUTO) 0.5 10^3/uL (0.0-0.3); EOSINOPHILS % (AUTO) 9 % (0-10); HEMATOCRIT 43 % (40-54); HEMOGLOBIN 14.8 G/DL (13.3-17.7); LYMPHOCYTES # (AUTO) 1.1 X 10^3 (1.0-4.0); LYMPHOCYTES % (AUTO) 22 % (12-44); MEAN CORPUSCULAR HEMOGLOBIN 30 PG (25-34); MEAN CORPUSCULAR HGB CONC 35 G/DL (32-36); MEAN CORPUSCULAR VOLUME 87 FL (80-99); MONOCYTES % (AUTO) 19 % (0-12); NEUTROPHILS # (AUTO) 2.5 X 10^3 (1.8-7.8); NEUTROPHILS % (AUTO) 49 % (42-75); PLATELET COUNT 259 10^3/uL (130-400); RED CELL DISTRIBUTION WIDTH 12.5 % (10.0-14.5)
[2019-02-04 21:09] LABS: BILIRUBIN,URINE 1+ (NEGATIVE); CLARITY,URINE CLEAR; COLOR,URINE YELLOW; GLUCOSE, URINE (UA) NEGATIVE (NEGATIVE); KETONES,URINE NEGATIVE (NEGATIVE); LEUKOCYTE ESTERASE ,URINE 1+ (NEGATIVE); NITRITE,URINE NEGATIVE (NEGATIVE); PH,URINE 6 (5-9); PROTEIN,URINE 2+ (NEGATIVE); UROBILINOGEN,URINE 4 MG/DL (NORMAL)
[2019-02-04 21:13] LABS: BACTERIA,URINE MODERATE /HPF; WBC,URINE RARE /HPF
[2019-02-04 21:20] LABS: ALANINE AMINOTRANSFERASE 14 U/L (0-55); ALBUMIN 4.5 GM/DL (3.2-4.5); ALKALINE PHOSPHATASE 137 U/L (40-136); BILIRUBIN,TOTAL 0.6 MG/DL (0.1-1.0); BUN/CREATININE RATIO 19; CALCIUM 9.2 MG/DL (8.5-10.1); CARBON DIOXIDE 23 MMOL/L (21-32); CHLORIDE 103 MMOL/L (98-107); CREATININE SERUM 0.83 MG/DL (0.60-1.30); GFR ESTIMATED > 60; GLUCOSE 98 MG/DL (70-105); LIPASE 24 U/L (8-78); POTASSIUM 3.9 MMOL/L (3.6-5.0); SODIUM 137 MMOL/L (135-145); TOTAL PROTEIN 7.3 GM/DL (6.4-8.2)
--- NOTE | 2019-02-04 21:20 | ED Abdominal Pain ---
General Chief Complaint: Abdominal/GI Problems Stated Complaint: SORE THROAT, VOMITTING, WEAKNESS Nursing Triage Note: STATES HAS BEEN HAVING ABDOMINAL PAIN SINCE SATURDAY WITH NAUSEA VOMITING AND DIARRHEA X 2 EACH TODAY. VERBALIZES HE NEEDS A NOTE FOR WORK AND VERBALIZED "I WORKED LAST NIGHT LIKE THIS AND JUST COULDNT DO IT AGAIN TONIGHT." Sepsis Screen: No Definite Risk (MCKENZIE PICHARDO) History of Present Illness Date Seen by Provider: Feb 04, 2019 Time Seen by Provider: 20:15 Initial Comments A 18 yo male presents to the ER because of abdominal pain. The pain began last Saturday and is now associated with nausea and vomiting and has made eating difficult. He also states that he has had hot and cold flashes that could be fevers and chills, and he has also had a sore throat. The pain is colicky in nature and located in the LLQ, RLQ, and hypogastric area. During an episode, the pain is a 10, but at rest it is a 6. The patient can eat Ramen and crackers, but hamburgers makes the pain worse. The patient also reports that drinking alcohol makes the pain better. Patient states that he has had diarrhea, but has had decrease in urine output. Social history is significant for [address] [facility] [address] and has been smoking since he was 11 yo. (MCKENZIE PICHARDO) Allergies and Home Medications Allergies Coded Allergies: rocuronium (Verified Allergy, Unknown, 11/04/18) Home Medications Doxycycline Hyclate 100 Mg Tablet, 100 MG PO BID Prescribed by: JANINA ALCANTAR on 12/06/182018 Meloxicam 7.5 Mg Tablet, 7.5 MG PO Q12H PRN for ABDOMINAL PAIN Prescribed by: LAURA GARCIA on 11/04/18 1402 Omeprazole 40 Mg Capsule.dr, 40 MG PO DAILY Prescribed by: SAMANTA SERRA on 01/25/192124 Ondansetron 4 Mg Tab.rapdis, 4 MG PO Q6H PRN for NAUSEA/VOMITING Prescribed by: SAMANTA SERRA on 01/25/192124 Review of Systems Review of Systems Constitutional: chills, dizziness, fever EENTM: No Blurred Vision, No Double Vision Respiratory: Shortness of Air, SOA With Exertion Cardiovascular: Denies Chest Pain; Lightheadedness Gastrointestinal: Denies Blood Streaked Stools, Denies Constipated; Diarrhea, Nausea, Poor Appetite, Vomiting Genitourinary: Denies Burning, Denies Frequency, Denies Pain (MCKENZIE PICHARDO) Past Bkhmpir-Twzpfq-Qtrpqj Hx Patient Social History Alcohol Use: Occasionally Uses Number of Drinks Today: CC Alcohol Beverage of Choice: Beer, Cheap Liquor Recreational Drug Use: Yes Drug of Choice: Occ MJ Smoking Status: Current Everyday Smoker Type Used: Cigarettes 2nd Hand Smoke Exposure: Yes Recent Foreign Travel: No Contact w/Someone Who Travel: No Recent Infectious Disease Expo: No Recent Hopitalizations: No Physical Abuse: No Sexual Abuse: No Mistreated: No Fear: No (MCKENZIE PICHARDO) Seasonal Allergies Seasonal Allergies: No (MCKENZIE PICHARDO) Past Medical History Surgeries: No Respiratory: No Cardiac: No Neurological: No Genitourinary: No Gastrointestinal: No Musculoskeletal: No Endocrine: No HEENT: No Cancer: No Psychosocial: Yes Depression Integumentary: No Blood Disorders: No (MCKENZIE PICHARDO) Physical Exam Vital Signs Vital Signs - First Documented 02/04/19 20:00 Temp 97.6 Pulse 77 Resp 18 B/P (MAP) 117/86 (96) (ESTHER QUIROZ MD) Vital Signs Capillary Refill : Less Than 3 Seconds (MCKENZIE PICHARDO) Height/Weight/BMI Height: 6'0" Weight: 125lbs. oz. 56.666920ce; 16.82 BMI Method:Stated General Appearance: WD/WN, no apparent distress, thin HEENT: No TMs normal (Could not be visualized due to cerumen) Neck: non-tender, supple, normal inspection Respiratory: chest non-tender, lungs clear, no respiratory distress, no accessory muscle use, decreased breath sounds Cardiovascular: regular rate, rhythm, no edema, no gallop, no JVD, no murmur Gastrointestinal: normal bowel sounds, no organomegaly, no pulsatile mass, tenderness (Epigastric, RUQ, LUQ, Hypogastric) Skin: normal color, warm/dry Lymphatic: no adenopathy (no postauricular, submandibular, submental, anterior or posterior chain, supra or infraclavicular) (MCKENZIE PIHCARDO) Progress/Results/Core Measures Results/Orders Lab Results Laboratory Tests Test 02/04/19 20:50 02/04/19 20:58 Range/Units White Blood Count 5.0 4.3-11.0 10^3/uL Red Blood Count 4.96 4.35-5.85 10^6/uL Hemoglobin 14.8 13.3-17.7 G/DL Hematocrit 43 40-54 % Mean Corpuscular Volume 87 80-99 FL Mean Corpuscular Hemoglobin 30 25-34 PG Mean Corpuscular Hemoglobin Concent 35 32-36 G/DL Red Cell Distribution Width 12.5 10.0-14.5 % Platelet Count 259 130-400 10^3/uL Mean Platelet Volume 9.0 7.4-10.4 FL Neutrophils (%) (Auto) 49 42-75 % Lymphocytes (%) (Auto) 22 12-44 % Monocytes (%) (Auto) 19 H 0-12 % Eosinophils (%) (Auto) 9 0-10 % Basophils (%) (Auto) 1 0-10 % Neutrophils # (Auto) 2.5 1.8-7.8 X 10^3 Lymphocytes # (Auto) 1.1 1.0-4.0 X 10^3 Monocytes # (Auto) 1.0 0.0-1.0 X 10^3 Eosinophils # (Auto) 0.5 H 0.0-0.3 10^3/uL Basophils # (Auto) 0.0 0.0-0.1 10^3/uL Neutrophils % (Manual) 47 % Lymphocytes % (Manual) 20 % Monocytes % (Manual) 14 % Eosinophils % (Manual) 10 % Band Neutrophils 9 % Dohle Bodies SLIGHT Anisocytosis SLIGHT Blood Morphology Comment NORMAL Sodium Level 137 135-145 MMOL/L Potassium Level 3.9 3.6-5.0 MMOL/L Chloride Level 103 98-107 MMOL/L Carbon Dioxide Level 23 21-32 MMOL/L Anion Gap 11 5-14 MMOL/L Blood Urea Nitrogen 16 7-18 MG/DL Creatinine 0.83 0.60-1.30 MG/DL Estimat Glomerular Filtration Rate > 60 BUN/Creatinine Ratio 19 Glucose Level 98 70-105 MG/DL Calcium Level 9.2 8.5-10.1 MG/DL Corrected Calcium 8.8 8.5-10.1 MG/DL Total Bilirubin 0.6 0.1-1.0 MG/DL Aspartate Amino Transf (AST/SGOT) 22 5-34 U/L Alanine Aminotransferase (ALT/SGPT) 14 0-55 U/L Alkaline Phosphatase 137 H 40-136 U/L Total Protein 7.3 6.4-8.2 GM/DL Albumin 4.5 3.2-4.5 GM/DL Lipase 24 8-78 U/L Urine Color YELLOW Urine Clarity CLEAR Urine pH 6 5-9 Urine Specific [place] 1.020 1.016-1.022 Urine Protein 2+ H NEGATIVE Urine Glucose (UA) NEGATIVE NEGATIVE Urine Ketones NEGATIVE NEGATIVE Urine Nitrite NEGATIVE NEGATIVE Urine Bilirubin 1+ H NEGATIVE Urine Urobilinogen 4 H NORMAL MG/DL Urine Leukocyte Esterase 1+ H NEGATIVE Urine RBC (Auto) NEGATIVE NEGATIVE Urine RBC NONE /HPF Urine WBC RARE /HPF Urine Crystals NONE /LPF Urine Bacteria MODERATE H /HPF Urine Casts NONE /LPF Urine Mucus LARGE H /LPF Urine Culture Indicated NO (ESTHER QUIROZ MD) My Orders Orders - ESTHER QUIROZ MD Hyoscyamine Sl Tablet (Levsin Sl Tablet) (02/04/19 20:30) Ondansetron Oral Dissolve Tab (Zofran (02/04/19 20:30) Cbc With Automated Diff (02/04/19 20:47) Comprehensive Metabolic Panel (02/04/19 20:47) Lipase (02/04/19 20:47) Ua Culture If Indicated (02/04/19 20:47) Ed Iv/Invasive Line Start (02/04/19 20:47) Lactated Ringers (Lr 1000 Ml Iv Solution (02/04/19 20:47) Manual Differential (02/04/19 20:50) Lidocaine 2% Viscous 15 Ml (Xylocaine Vi (02/04/19 21:45) Antacid Suspension (Mylanta Suspension (02/04/19 21:45) Famotidine Injection (Pepcid Injection) (02/04/19 21:43) (ESTHER QUIROZ MD) Medications Given in ED Current Medications Medications Dose Ordered Sig/Tavo Route Start Time Stop Time Status Last Admin Dose Admin Al Hydrox/Mg Hydrox/Simethicone 30 ml ONCE ONCE PO 02/04/19 21:45 02/04/19 21:46 DC 02/04/19 21:49 30 ML Hyoscyamine Sulfate 0.25 mg ONCE ONCE SL 02/04/19 20:30 02/04/19 20:31 DC 02/04/19 20:28 0.25 MG Lactated Ringer's 1,000 ml @ 0 mls/hr Q0M ONCE IV 02/04/19 20:47 02/04/19 20:48 DC 02/04/19 20:57 1,000 MLS/HR Lidocaine HCl 15 ml ONCE ONCE PO 02/04/19 21:45 02/04/19 21:46 DC 02/04/19 21:49 15 ML Ondansetron HCl 8 mg ONCE ONCE SL 02/04/19 20:30 02/04/19 20:31 DC 02/04/19 20:29 8 MG (ESTHER QUIROZ MD) Vital Signs/I&O 02/04/19 20:00 Temp 97.6 Pulse 77 Resp 18 B/P (MAP) 117/86 (96) (ESTHER QUIROZ MD) Blood Pressure Mean: 96 Departure Impression Primary Impression: Upper abdominal pain Additional Impressions: Nausea Acute diarrhea Disposition: HOME, SELF-CARE Condition: Against Medical Advice Departure-Patient Inst. Decision time for Depature: 22:20 (ESTHER QUIROZ MD) Referrals: MIGUEL WHITMORE MD (PCP/Family) Primary Care Physician Patient Instructions: Acute Abdomen (Belly Pain), Gastritis (DC) Add. Discharge Instructions: Start with a clear liquid diet and gradually advance your diet with small quantities of bland food as tolerated. Take omeprazole as prescribed for at least 2 weeks. Avoid the following: Eating large meals, eating close to bedtime, caffeine, carbonation, chocolate, tobacco, alcohol, citrus fruits and juices, tomato products, spicy foods, fatty or greasy foods, mints, NSAID medications such as ibuprofen or naproxen, or anything else you know irritate your stomach. Excellent follow-up with your primary care provider as scheduled. Return to the ER if you have worsening symptoms. All discharge instructions reviewed with patient and/or family. Voiced understanding. Scripts Omeprazole (Omeprazole) 20 Mg Capsule. 20 MG PO BID, #60 CAP Prov: ESTHER QUIROZ MD 02/04/19 Work/School Note: Work Release Form Date Seen in the Emergency Department: Feb 04, 2019 Return to Work: Feb 05, 2019 Restrictions: No Restrictions MCKENZIE PICHARDO MED STUDDESHAWN Feb 04, 2019 21:20 ESTHER QUIROZ MD Feb 04, 2019 22:22
[2019-02-04] MEDS ORDERED: FAMOTIDINE 20MG/2ML IV (PEPCID) IV STA (21:43)
[2019-02-04] MEDS ORDERED: ANTACID SUSP 30 ML UDC (MYLANTA) PO ONE (21:45)
[2019-02-04] MEDS ORDERED: LIDOCAINE 2% VISCOUS 15 ML UDC PO ONE (21:45)
[2019-02-04 21:46] LABS: BAND NEUTROPHILS 9 %; EOSINOPHILS % (MANUAL) 10 %; LYMPHOCYTES % (MANUAL) 20 %; MONOCYTES % (MANUAL) 14 %; NEUTROPHILS % (MANUAL) 47 %; RBC MORPH NORMAL
[2019-02-04 21:47] LABS: ANISOCYTOSIS SLIGHT
[2019-02-04] MEDS ORDERED: OMEP20CA13 PO (22:22)
[2019-02-04 22:39] VITALS: BP 112/78
== END 2019-02-04 22:40 | disposition home or self-care (01) ==
LOC: EDUNIT# 19:54 → ER 19:56
DX: R10.13 Epigastric pain (principal); R10.11 Right upper quadrant pain; R10.32 Left lower quadrant pain; R11.2 Nausea with vomiting, unspecified; R19.7 Diarrhea, unspecified; F32.9 Major depressive disorder, single episode, unspecified; F17.210 Nicotine dependence, cigarettes, uncomplicated; Z88.8 Allergy status to other drugs, medicaments and biological substances
CPT/HCPCS: 36415; 80053; 81000; 83690; 85007; 85027

== ENCOUNTER 2019-02-21 12:35 | Emergency (ER) | payer SELFPAY ==
[~2019-02-21] VITALS: Ht 183 cm; Wt 54.6 kg
[~2019-02-21 12:35] MED LIST changes: +BSS 15 ML ONE; +FLUORESCEIN (FLUOR-I-STRIPS) 1 MG STRP ONE; +OMEP20CA13 PO; +TETRACAINE 0.5% OPHTH SOLN 4 ML BTL (SINGLE DOSE ONLY) ONE
--- NOTE | 2019-02-21 12:57 | ED EENT ---
History of Present Illness General Stated Complaint: SOMETHING IN RT EYE - CANT SEE OUT OF IT Source: patient Exam Limitations: no limitations History of Present Illness Date Seen by Provider: Feb 21, 2019 Time Seen by Provider: 12:53 Initial Comments Woke up this a.m. with pain redness photophobia and itching and tearing from right eye this morning. He did yardwork yesterday but does not remember any trauma. Allergies and Home Medications Allergies Coded Allergies: rocuronium (Verified Allergy, Unknown, 11/04/18) Home Medications Doxycycline Hyclate 100 Mg Tablet, 100 MG PO BID Prescribed by: JANINA ALCANTAR on 12/06/182018 Meloxicam 7.5 Mg Tablet, 7.5 MG PO Q12H PRN for ABDOMINAL PAIN Prescribed by: LAURA GARCIA on 11/04/181401 Omeprazole 40 Mg Capsule.dr, 40 MG PO DAILY Prescribed by: SAMANTA SERRA on 01/25/192124 Omeprazole 20 Mg Capsule.dr, 20 MG PO BID Prescribed by: ESTHER MCCLENDON on 02/04/192221 Ondansetron 4 Mg Tab.rapdis, 4 MG PO Q6H PRN for NAUSEA/VOMITING Prescribed by: SAMANTA SERRA on 01/25/192124 Patient Home Medication List Home Medication List Reviewed: Yes Review of Systems Review of Systems Constitutional: no symptoms reported Eyes: Pain, Photophobia Respiratory: no symptoms reported Cardiovascular: no symptoms reported Gastrointestinal: no symptoms reported All Other Systems Reviewed Negative Unless Noted: Yes Past Lvkgzun-Yxlajx-Ieirsp Hx Patient Social History Alcohol Beverage of Choice: Beer, Cheap Liquor Drug of Choice: Occ MJ Type Used: Cigarettes 2nd Hand Smoke Exposure: Yes Recent Hopitalizations: No Seasonal Allergies Seasonal Allergies: No Past Medical History Surgeries: No Respiratory: No Cardiac: No Neurological: No Genitourinary: No Gastrointestinal: No Musculoskeletal: No Endocrine: No HEENT: No Cancer: No Psychosocial: Yes Depression Integumentary: No Blood Disorders: No Physical Exam Vital Signs Vital Signs - First Documented 02/21/19 12:40 Temp 36.6 Pulse 77 Resp 18 B/P (MAP) 107/60 (76) Pulse Ox 99 O2 Delivery Room Air Height, Weight, BMI Height: 6'0" Weight: 125lbs. oz. 56.201328px; 16.82 BMI Method:Stated General Appearance: WD/WN, mild distress Eyes: right eye conjunctival inflammation; bilateral eye PERRL, bilateral eye EOMI Neck: supple Cardiovascular: regular rate, rhythm Respiratory: lungs clear Neurologic/Psychiatric: alert, normal mood/affect Skin: normal color, warm/dry Progress/Results/Core Measures Results/Orders My Orders Orders - KARLA STEVE MD Tetracaine 0.5% Ophth Brook[place]nn Sdv (Tetracai (02/21/19 12:34) Fluorescein Strips (Fbkyf-V-Vgqjuv) (02/21/19 12:34) Balanced Salt Irrigation Soln (Bss Irrig (02/21/19 12:34) Gentamicin 0.3% Ophth Solution (Garamyci (02/21/19 13:00) Tetracaine 0.5% Ophth Brooklynn Sdv (Tetracai (02/21/19 13:30) Balanced Salt Irrigation Soln (Bss Irrig (02/21/19 13:30) Fluorescein Strips (Poucv-D-Uiicjt) (02/21/19 13:30) Medications Given in ED Current Medications Medications Dose Ordered Sig/Tavo Route Start Time Stop Time Status Last Admin Dose Admin Balanced Salt Solution 15 ml PRN PRN IR 02/21/19 13:30 02/21/19 12:50 15 ML Fluorescein Sodium 1 mg ONCE ONCE OU 02/21/19 13:30 02/21/19 13:31 DC 02/21/19 12:47 1 MG Tetracaine HCl 1 OR 2 DROPS INTO AFFEC... ONCE ONCE OP 02/21/19 13:30 02/21/19 13:31 DC 02/21/19 12:47 1 ML Vital Signs/I&O 02/21/19 02/21/19 12:40 13:05 Temp 36.6 36.6 Pulse 77 77 Resp 18 18 B/P (MAP) 107/60 (76) 107/60 (76) Pulse Ox 99 99 O2 Delivery Room Air Progress Progress Note : Time: 12:55 Progress Note I was inspected after tetracaine drops were instilled. There is no foreign body. He hasn't seen uptake at 4 o'clock. No foreign body seen under lids. Departure Impression Primary Impression: Corneal abrasion Disposition: 01 HOME, SELF-CARE Condition: Stable Departure-Patient Inst. Decision time for Depature: 12:56 Referrals: MIGUEL WHITMORE MD (PCP/Family) Primary Care Physician Patient Instructions: Corneal Abrasion Add. Discharge Instructions: Use eyedrops 2 drops every 2 hours while awake. See eye doctor if not improving in 48 hours. KARLA STEVE MD Feb 21, 2019 12:57
[2019-02-21] MEDS ORDERED: GENTAMICIN 0.3% OPHTH SOLN 5 ML OP SCH (13:00)
[2019-02-21 13:05] VITALS: BP 107/60
[2019-02-21] MEDS ORDERED: TETRACAINE 0.5% OPHTH SOLN 4 ML BTL (SINGLE DOSE ONLY) OP ONE (13:30)
[2019-02-21] MEDS ORDERED: FLUORESCEIN (FLUOR-I-STRIPS) 1 MG STRP OU ONE (13:30)
[2019-02-21] MEDS ORDERED: BSS 15 ML IR PRN (13:30)
[2019-02-22] MEDS ORDERED: PRD20T PO (04:57)
[2019-02-22] MEDS ORDERED: HYDR-700 PO (04:57)
== END 2019-02-21 13:05 | disposition home or self-care (01) ==
LOC: EDUNIT# 12:35 → ER FS 12:36
DX: S05.01XA Injury of conjunctiva and corneal abrasion without foreign body, right eye, initial encounter (principal); F32.9 Major depressive disorder, single episode, unspecified; Z77.22 Contact with and (suspected) exposure to environmental tobacco smoke (acute) (chronic); Z88.8 Allergy status to other drugs, medicaments and biological substances; X58.XXXA Exposure to other specified factors, initial encounter
CPT/HCPCS: 99282

== ENCOUNTER 2019-02-22 04:34 | Emergency (ER) | payer SELFPAY ==
[~2019-02-22] VITALS: Ht 182 cm; Wt 55.0 kg
[~2019-02-22 04:34] MED LIST changes: -BSS 15 ML ONE; -FLUORESCEIN (FLUOR-I-STRIPS) 1 MG STRP ONE; -TETRACAINE 0.5% OPHTH SOLN 4 ML BTL (SINGLE DOSE ONLY) ONE
[2019-02-22] MEDS ORDERED: HYDR-700 PO (04:57)
[2019-02-22] MEDS ORDERED: PRD20T PO (04:57)
[2019-02-22] MEDS ORDERED: predniSONE 20 MG TAB PO ONE (05:00)
[2019-02-22] MEDS ORDERED: hydrOXYzine (VISTARIL/ATARAX) 25 MG capsule/tablet PO ONE (05:00)
[2019-02-22 05:05] VITALS: BP 109/67
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
== END 2019-02-22 05:05 | disposition home or self-care (01) ==
LOC: EDUNIT# 04:34 → ER FS 04:35
DX: L25.5 Unspecified contact dermatitis due to plants, except food (principal); F32.9 Major depressive disorder, single episode, unspecified; Z88.8 Allergy status to other drugs, medicaments and biological substances
CPT/HCPCS: 99283

== ENCOUNTER 2019-02-23 23:30 | Emergency (ER) | payer SELFPAY ==
[~2019-02-23] VITALS: Ht 182 cm; Wt 59.0 kg
[~2019-02-23 23:30] MED LIST changes: +HYDR-700 PO; +PRD20T PO
[2019-02-23] MEDS ORDERED: RT-ALBUTEROL/IPRATROPIUM 3 ML (DUONEB) VIAL INH STA (23:45)
[2019-02-23] MEDS ORDERED: DEXAMETHASONE 10 MG/ML (DECADRON) 1 ML VIAL IM STA (23:45)
[2019-02-23] MEDS ORDERED: methylPREDNISolone 80 MG/ML (DEPO MEDROL) VIAL IM STA (23:45)
--- NOTE | 2019-02-23 23:52 | ED Respiratory ---
General Chief Complaint: Respiratory Problems Stated Complaint: TROUBLE BREATHING Source: patient History of Present Illness Date Seen by Provider: Feb 23, 2019 Time Seen by Provider: 23:32 Initial Comments 18-year-old male presenting with complaints of being short of breath and feeling like she's got swelling in his throat. He feels that this is been going on since he had the poison [place] exposure. He has not been able to fill the prescription for the steroids that he got when he was seen yesterday because he does not have any money. He states that he tried to bar away from several people but has not been able to fill prescription. He felt like he was more short of breath tonight. He has been smoking a few cigarettes a day but has not been able to quit yet. He has occasional cough. He denies any fever or chills. He has no difficulty with swallowing. Allergies and Home Medications Allergies Coded Allergies: rocuronium (Verified Allergy, Unknown, 11/04/18) Home Medications Doxycycline Hyclate 100 Mg Tablet, 100 MG PO BID Prescribed by: JANINA ALCANTAR on 12/06/182018 Hydroxyzine HCl 25 Mg Tablet, 50 MG PO Q6H Prescribed by: YUDITH EVANS on 02/22/19456 Meloxicam 7.5 Mg Tablet, 7.5 MG PO Q12H PRN for ABDOMINAL PAIN Prescribed by: LAURA GARCIA on 11/04/18 140 Omeprazole 40 Mg Capsule.dr, 40 MG PO DAILY Prescribed by: SAMANTA SERRA on 01/25/192124 Omeprazole 20 Mg Capsule.dr, 20 MG PO BID Prescribed by: ESTHER MCCLENDON on 02/04/192221 Ondansetron 4 Mg Tab.rapdis, 4 MG PO Q6H PRN for NAUSEA/VOMITING Prescribed by: SAMANTA SERRA on 01/25/192124 Prednisone 20 Mg Tab, 20 MG PO BID Prescribed by: YUDITH EVANS on 02/22/19 531 Patient Home Medication List Home Medication List Reviewed: Yes Review of Systems Review of Systems Constitutional: No chills, No fever EENTM: throat swelling (sensation of throat swelling); No mouth pain, No mouth swelling, No nose congestion, No throat pain Respiratory: cough (occasional), short of breath Cardiovascular: No chest pain Gastrointestinal: no symptoms reported Genitourinary: no symptoms reported Musculoskeletal: no symptoms reported Skin: rash (diffuse rash with itching) Past Ukxdsqi-Nrrhxk-Egcuoj Hx Past Med/Social Hx: Reviewed Nursing Past Med/Soc Hx Patient Social History Alcohol Beverage of Choice: Beer, Cheap Liquor Drug of Choice: Occ MJ Type Used: Cigarettes 2nd Hand Smoke Exposure: No Recent Foreign Travel: No Contact w/Someone Who Travel: No Recent Hopitalizations: No Immunizations Up To Date Tetanus Booster (TDap): Less than 5yrs Seasonal Allergies Seasonal Allergies: No Past Medical History Surgeries: No Respiratory: No Cardiac: No Neurological: No Genitourinary: No Gastrointestinal: No Musculoskeletal: No Endocrine: No HEENT: No Cancer: No Psychosocial: Yes Depression Integumentary: Yes (staph infection hx on arm) Blood Disorders: No Physical Exam Vital Signs - First Documented 02/23/19 23:36 Temp 35.9 Pulse 59 Resp 20 B/P (MAP) 104/60 (75) Pulse Ox 100 O2 Delivery Room Air Capillary Refill : Height: 6'0" Weight: 125lbs. oz. 56.286259cz; 16.00 BMI Method:Stated General Appearance: WD/WN, no apparent distress HEENT: PERRL/EOMI, pharynx normal Neck: non-tender, full range of motion, supple, normal inspection Respiratory: chest non-tender, no respiratory distress, no accessory muscle use, wheezing (in the bases of his lungs) Cardiovascular: normal peripheral pulses, regular rate, rhythm Gastrointestinal: normal bowel sounds, soft, no pulsatile mass Skin: warm/dry, rash (diffuse erythematous rash) Progress/Results/Core Measures Suspected Sepsis SIRS Temperature: Pulse: Respiratory Rate: Blood Pressure / Mean: Results/Orders My Orders Orders - LUMA DAILY MD Albuterol/Ipra Inhalation Soln (Duoneb I (02/23/19 23:45) Dexamethasone Injection (Decadron Inject (02/23/19 23:45) Methylprednisolone Acetate Inj (Depo-Med (02/23/19 23:45) Svn Small Volume Nebulizer (02/23/19 23:45) Vital Signs/I&O 02/23/19 23:36 Temp 35.9 Pulse 59 Resp 20 B/P (MAP) 104/60 (75) Pulse Ox 100 O2 Delivery Room Air Capillary Refill : Progress Note : Progress Note Treat with IM steroids here as well as a DuoNeb breathing treatment. By using the IM steroids he wouldn't have to worry about trying to get money to fill his prescriptions. This would help with the rash as well as his breathing. Continue to encourage him to quit smoking. Follow-up with the clinic for continued concerns. Departure Impression Primary Impression: Shortness of breath Additional Impression: Tobacco abuse Disposition: 01 HOME, SELF-CARE Condition: Stable Departure-Patient Inst. Decision time for Depature: 23:52 Referrals: MIGUEL WHITMORE MD (PCP/Family) Primary Care Physician Patient Instructions: Quitting Smoking for Teens and Young Adults, Shortness of Breath (Dyspnea) Add. Discharge Instructions: Continue to work on quitting smoking. Stay well-hydrated and get plenty of rest. The steroid shots will help with your rash as well as help you breath better. It will help to treat the allergy symptoms that are making you itch and have shortness of breath. All discharge instructions reviewed with patient and/or family. Voiced understanding. LUMA DAILY MD Feb 23, 2019 23:52
[2019-02-24 00:03] VITALS: BP 104/60
== END 2019-02-24 00:03 | disposition home or self-care (01) ==
LOC: EDUNIT# 23:30 → ER FS 23:32
DX: R06.02 Shortness of breath (principal); F32.9 Major depressive disorder, single episode, unspecified; F17.210 Nicotine dependence, cigarettes, uncomplicated; Z88.8 Allergy status to other drugs, medicaments and biological substances
CPT/HCPCS: 96372; 99284

== ENCOUNTER 2019-04-16 07:38 | Emergency (ER) | payer BC, OTHER ==
[~2019-04-16] VITALS: Ht 177.8 cm; Wt 56.2 kg
--- NOTE | 2019-04-16 08:31 | Diagnostic Imaging Report ---
INDICATION: Ankle pain COMPARISON: None available TECHNIQUE: 3 radiographs of the left ankle dated 04/16/2019. FINDINGS: No acute fracture or dislocation. No destructive osseous process. The talar dome is unremarkable. The ankle mortise is symmetric. No suspicious radiopaque foreign body. IMPRESSION: No acute osseous abnormality. Dictated by: Dictated on workstation # [id number]
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
[2019-04-16 09:30] VITALS: BP 121/77
== END 2019-04-16 09:30 | disposition home or self-care (01) ==
LOC: EDUNIT# 07:38 → ER FS 07:39
DX: S93.402A Sprain of unspecified ligament of left ankle, initial encounter (principal); F32.9 Major depressive disorder, single episode, unspecified; F17.210 Nicotine dependence, cigarettes, uncomplicated; Z88.8 Allergy status to other drugs, medicaments and biological substances; Z79.52 Long term (current) use of systemic steroids; X58.XXXA Exposure to other specified factors, initial encounter
CPT/HCPCS: 73610

== ENCOUNTER 2019-10-26 16:20 | Emergency (ER) | payer SELFPAY ==
[~2019-10-26 16:20] MED LIST changes: -OMEP20CA13 PO; +OMEP20CA18 PO; +OMEP40CA27 PO; -OMEP40CA36 PO
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
--- NOTE | 2019-10-26 16:52 | NUR ---
Patient stated he had to go outside to make phone calls. This RN informed the patient he could not leave the facility due to the risk of harming himself or the police would be called. The patient became tearful and stated he was going to leave. Patient left and began walking down the road. Police were called by Sofia Bryant RN.
--- NOTE | 2019-10-26 17:09 | NUR ---
Patient brought back to room by PD at this time. The pd state that the patient is voluntary at this time, but if he tries to leave again they will make him involuntary.
--- NOTE | 2019-10-26 17:11 | NUR ---
Refusing to change into gown. Notified Sofia, deputy director of nursing.
[2019-10-26 17:31] LABS: BILIRUBIN,URINE NEGATIVE (NEGATIVE); CLARITY,URINE CLEAR; COLOR,URINE YELLOW; GLUCOSE, URINE (UA) NEGATIVE (NEGATIVE); KETONES,URINE NEGATIVE (NEGATIVE); LEUKOCYTE ESTERASE ,URINE NEGATIVE (NEGATIVE); NITRITE,URINE NEGATIVE (NEGATIVE); PROTEIN,URINE NEGATIVE (NEGATIVE); SQUAMOUS EPITHELIAL CELL,UR 0-2 /HPF
[2019-10-26 17:36] LABS: HEMATOCRIT 43 % (40-54); HEMOGLOBIN 14.4 G/DL (13.3-17.7); MEAN CORPUSCULAR HEMOGLOBIN 30 PG (25-34); MEAN CORPUSCULAR HGB CONC 34 G/DL (32-36); MEAN CORPUSCULAR VOLUME 89 FL (80-99); RED CELL DISTRIBUTION WIDTH 12.3 % (10.0-14.5); WHITE BLOOD COUNT 8.4 10^3/uL (4.3-11.0)
[2019-10-26 17:37] LABS: BASOPHILS # (AUTO) 0.1 10^3/uL (0.0-0.1); BASOPHILS % (AUTO) 1 % (0-10); EOSINOPHILS # (AUTO) 0.4 10^3/uL (0.0-0.3); EOSINOPHILS % (AUTO) 5 % (0-10); LYMPHOCYTES # (AUTO) 1.7 X 10^3 (1.0-4.0); LYMPHOCYTES % (AUTO) 20 % (12-44); MEAN PLATELET VOLUME 8.6 FL (7.4-10.4); MONOCYTES # (AUTO) 0.7 X 10^3 (0.0-1.0); MONOCYTES % (AUTO) 8 % (0-12); NEUTROPHILS # (AUTO) 5.5 X 10^3 (1.8-7.8); NEUTROPHILS % (AUTO) 66 % (42-75); PLATELET COUNT 330 10^3/uL (130-400)
[2019-10-26 17:50] LABS: ALANINE AMINOTRANSFERASE 11 U/L (0-55); ALKALINE PHOSPHATASE 134 U/L (40-136); BILIRUBIN,TOTAL 0.4 MG/DL (0.1-1.0); BUN/CREATININE RATIO 15; CALCIUM 9.6 MG/DL (8.5-10.1); CARBON DIOXIDE 27 MMOL/L (21-32); CHLORIDE 102 MMOL/L (98-107); CREATININE SERUM 0.75 MG/DL (0.60-1.30); GFR ESTIMATED > 60; GLUCOSE 105 MG/DL (70-105); POTASSIUM 4.2 MMOL/L (3.6-5.0); SODIUM 140 MMOL/L (135-145)
[2019-10-26 17:51] LABS: ACETAMINOPHEN < 10 UG/ML (10-30); ALBUMIN 4.6 GM/DL (3.2-4.5); SALICYLATE < 5.0 MG/DL (5.0-20.0); TOTAL PROTEIN 7.3 GM/DL (6.4-8.2)
[2019-10-26 17:52] LABS: AMPHETAMINE SCREEN, URINE NEGATIVE (NEGATIVE); BARBITURATE SCREEN URINE NEGATIVE (NEGATIVE); BENZODIAZEPINES SCREEN URINE NEGATIVE (NEGATIVE); CANNABINOID SCREEN, URINE POSITIVE (NEGATIVE); COCAINE SCREEN URINE NEGATIVE (NEGATIVE); METHADONE STAT NEGATIVE (NEGATIVE); METHAMPHETAMINE SCREEN URINE S NEGATIVE (NEGATIVE); OPIATE SCREEN URINE NEGATIVE (NEGATIVE); OXYCODONE STAT NEGATIVE (NEGATIVE); PROPOXYPHENE STAT NEGATIVE (NEGATIVE); TRICYCLIC ANTIDEPRESSANTS SCRE NEGATIVE (NEGATIVE)
[2019-10-26] MEDS ORDERED: ACETAMINOPHEN 500 MG TAB (TYLENOL) PO ONE (18:00)
--- NOTE | 2019-10-26 18:02 | NUR ---
Called [facility] to request a mental health screening at this time. Face sheet and labs faxed to [phone].
--- OUTSIDE RECORDS SUMMARY | 2019-10-26 18:15 | XMS REPORT | Continuity of Care Document ---
Author Organization Unknown Address Unknown Phone Unavailable Allergies Active Description Code Type Severity Reaction Onset Reported/Identified Relationship to Patient Clinical Status Yes No Known Drug Allergies [id number] Drug Allergy Unknown N/A 11/04/2018 Yes rocuronium [id number] Drug Allerg y Unknown N/A 11/04/2018 Medications There is no data. Problems Date Dx Coded Attending Type Code Diagnosis Diagnosed By 11/04/2018 LAURA GARCIA DO Ot R10.9 UNSPECIFIED ABDOMINAL PAIN 11/04/2018 LAURA GARCIA DO Ot T18.4XXA FOREIGN BODY IN COLON, INITIAL ENCOUNTER 11/04/2018 LAURA GARCIA DO Ot Z88.8 ALLERGY STATUS TO OTH DRUG/MEDS/BIOL SUB 11/07/2018 LAURA GARCIA DO Ot R10.9 UNSPECIFIED ABDOMINAL PAIN 11/07/2018 LAURA GARCIA DO Ot T18.4XXA FOREIGN BODY IN COLON, INITIAL ENCOUNTER 11/07/2018 LAURA GARCIA DO Ot Z88.8 ALLERGY STATUS TO OTH DRUG/MEDS/BIOL SUB 12/09/2018 ALCANTAR DO, JANINA L Ot F32.9 MAJOR DEPRESSIVE DISORDER, SINGLE EPISOD 12/09/2018 ALCANTAR DO, JANINA L Ot N39.0 URINARY TRACT INFECTION, SITE NOT SPECIF 12/09/2018 ALCANTAR DO, JANINA L Ot N45.3 EPIDIDYMO-ORCHITIS 12/09/2018 ALCANTAR DO, JANINA L Ot R30.0 DYSURIA 12/09/2018 ALCANTAR DO, JANINA L Ot Z88.8 ALLERGY STATUS TO OTH DRUG/MEDS/BIOL SUB 12/12/2018 ALCANTAR DO, JANINA L Ot F32.9 MAJOR DEPRESSIVE DISORDER, SINGLE EPISOD 12/12/2018 ALCANTAR DO, JANINA L Ot N39.0 URINARY TRACT INFECTION, SITE NOT SPECIF 12/12/2018 ALCANTAR DO, JANINA L Ot N45.3 EPIDIDYMO-ORCHITIS 12/12/2018 ALCANTAR DO, JANINA L Ot R30.0 DYSURIA 12/12/2018 ALCANTAR DO, JANINA L Ot Z88.8 ALLERGY STATUS TO OTH DRUG/MEDS/BIOL SUB 01/28/2019 PONCE LAGUNAS, SAMANTA Cardona Ot F17.210 NICOTINE DEPENDENCE, CIGARETTES, UNCOMPL 01/28/2019 PONCE LAGUNAS, SAMANTA J Ot K29. 70 GASTRITIS, UNSPECIFIED, WITHOUT BLEEDING 01/28/2019 SAMANTA SERRA MD Ot K52. 9 NONINFECTIVE GASTROENTERITIS AND COLITIS 01/28/2019 SAMANTA SERRA MD J Ot R07. 9 CHEST PAIN, UNSPECIFIED 01/28/2019 SAMANTA SERRA MD Ot Z88. 8 ALLERGY STATUS TO OTH DRUG/MEDS/BIOL SUB 01/31/2019 SAMANTA SERRA MD Ot F17.210 NICOTINE DEPENDENCE, CIGARETTES, UNCOMPL 01/31/2019 SAMANTA SERRA MD Ot K29. 70 GASTRITIS, UNSPECIFIED, WITHOUT BLEEDING 01/31/2019 SAMANTA SERRA MD Ot K52. 9 NONINFECTIVE GASTROENTERITIS AND COLITIS 01/31/2019 SAMANTA SERRA MD Ot R07. 9 CHEST PAIN, UNSPECIFIED 01/31/2019 SAMANTA SERRA MD Ot Z88. 8 ALLERGY STATUS TO OTH DRUG/MEDS/BIOL SUB 02/04/2019 GABRIELLA LAGUNAS, ESTHER Angulo Ot F17.210 NICOTINE DEPENDENCE, CIGARETTES, UNCOMPL 02/04/2019 GABRIELLA LAGUNAS, ESTHER Angulo Ot F32.9 MAJOR DEPRESSIVE DISORDER, SINGLE EPISOD 02/04/2019 GABRIELLA LAGUNAS, ESTHER Angulo Ot R10.11 RIGHT UPPER QUADRANT PAIN 02/04/2019 GABRIELLA LAGUNAS, ESTHER Angulo Ot R10.13 EPIGASTRIC PAIN 02/04/2019 GABRIELLA LAGUNAS, ESTHER Anguol Ot R10.32 LEFT LOWER QUADRANT PAIN 02/04/2019 GABRIELLA LAGUNAS, ESTHER Angulo Ot R11.2 NAUSEA WITH VOMITING, UNSPECIFIED 02/04/2019 GABRIELLA LAGUNAS, ESTHER Angulo Ot R19.7 DIARRHEA, UNSPECIFIED 02/04/2019 GABRIELLA LAGUNAS, ESTHER Angulo Ot Z88.8 ALLERGY STATUS TO OTH DRUG/MEDS/BIOL SUB 02/06/2019 ESTHER QUIROZ MD Ot F17.210 NICOTINE DEPENDENCE, CIGARETTES, UNCOMPL 02/06/2019 GABRIELLA LAGUNAS, ESTHER Angulo Ot F32.9 MAJOR DEPRESSIVE DISORDER, SINGLE EPISOD 02/06/2019 GABRIELLA LAGUNAS, ESTHER Angulo Ot R10.11 RIGHT UPPER QUADRANT PAIN 02/06/2019 GABRIELLA LAGUNAS, ESTHER Angulo Ot R10.13 EPIGASTRIC PAIN 02/06/2019 GABRIELLA LAGUNAS, ESTHER Angulo Ot R10.32 LEFT LOWER QUADRANT PAIN 02/06/2019 GABRIELLA LAGUNAS, ESTHER Angulo Ot R11.2 NAUSEA WITH VOMITING, UNSPECIFIED 02/06/2019 GABRIELLA LAGUNAS, ESTHER Angulo Ot R19.7 DIARRHEA, UNSPECIFIED 02/06/2019 GABRIELLA LAGUNAS, ESTHER Angulo Ot Z88.8 ALLERGY STATUS TO OTH DRUG/MEDS/BIOL SUB 02/24/2019 POWER LAGUNAS, KARLA Eldridge Ot F32. 9 MAJOR DEPRESSIVE DISORDER, SINGLE EPISOD 02/24/2019 POWER LAGUNAS, KARLA Eldridge Ot H57. 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 22 CNTCT W AND EXPSR TO ENVIRON TOBACCO SMO 02/24/2019 KARLA STEVE MD Ot Z88. 8 ALLERGY STATUS TO OTH DRUG/MEDS/BIOL SUB 02/24/2019 YUDITH EVANS DO Ot F32.9 MAJOR DEPRESSIVE DISORDER, SINGLE EPISOD 02/24/2019 YUDITH EVANS DO Ot L25.5 UNSPECIFIED CONTACT DERMATITIS DUE TO PL 02/24/2019 YUDITH EVANS DO Ot R21 RASH AND OTHER NONSPECIFIC SKIN ERUPTION 02/24/2019 YUDITH EVANS DO Ot Z88.8 ALLERGY STATUS TO OTH DRUG/MEDS/BIOL SUB 02/26/2019 ABIMBOLA LAGUNAS, LUMA Aguilar Ot F17.2 10 NICOTINE DEPENDENCE, CIGARETTES, UNCOMPL 02/26/2019 ABIMBOLA LAGUNAS, LUMA Aguilar Ot F32.9 MAJOR DEPRESSIVE DISORDER, SINGLE EPISOD 02/26/2019 ABIMBOLA LAGUNAS, LUMA Aguilar Ot R06.0 2 SHORTNESS OF BREATH 02/26/2019 ABIMBOLA LAGUNAS, LUMA Aguilar Ot Z88.8 ALLERGY STATUS TO OTH DRUG/MEDS/BIOL SUB 02/28/2019 YUDITH EVANS DO Ot F32.9 MAJOR DEPRESSIVE DISORDER, SINGLE EPISOD 02/28/2019 YUDITH EVANS DO Ot L25.5 UNSPECIFIED CONTACT DERMATITIS DUE TO PL 02/28/2019 YUDITH EVANS DO Ot R21 RASH AND OTHER NONSPECIFIC SKIN ERUPTION 02/28/2019 YUDITH EVANS DO Ot Z88.8 ALLERGY STATUS TO OTH DRUG/MEDS/BIOL SUB Procedures There is no data. Results Test Result Range Complete blood count (CBC) with automate d white blood cell (WBC) differential - 11/04/18 11:45 Blood leukocytes automated count (number/volume) 5.6 10*3/uL 4.3-11.0 Blood erythrocytes automated count (number/volume) 4.77 10*6/uL 4.35-5.85 Venous blood hemoglobin measurement (mass/volume) 14.3 g/dL 13.3-17.7 Blood hematocrit (volume fraction) 42 % 40-54 Automated erythrocyte mean corpuscular volume 89 [ foz_us] 80-99 Automated erythrocyte mean corpuscular h emoglobin (mass per erythrocyte) 30 pg 25-34 Automated erythrocyte mean corpuscular h emoglobin concentration measurement (mass/volume) 34 g/dL 32-36 Automated erythrocyte distribution width ratio 12. 3 % 10.0- 14.5 Automated blood platelet count [...] 10*3 1.0-4.0 Blood monocytes automated count (number/volume) 0. 6 10*3 0.0-1.0 Automated eosinophil count 0.3 10*3/uL 0 .0-0.3 Automated blood basophil count (count/volume) 0.0 10*3/uL 0.0-0.1 Comprehensive metabolic panel - 11/04/18 11:45 Serum or plasma sodium measurement (moles/volume) 143 mmol/L 135-145 Serum or plasma potassium measurement (moles/volume) 4.2 mmol/L 3.6-5.0 Serum or plasma chloride measurement (moles/volume) 105 mmol/L 98-107 Carbon dioxide 28 mmol/L 21-32 Serum or plasma anion gap determination (moles/volume) 10 mmol/L 5-14 Serum or plasma urea nitrogen measurement (mass/volume ) 9 mg/dL 7-18 Serum or plasma creatinine measurement (mass/volume) 0.78 mg/dL 0.60-1.30 Serum or plasma urea nitrogen/creatinine mass ratio 12 NRG Serum or plasma creatinine measurement w ith calculation of estimated glomerular filtration rate > NRG Serum or plasma glucose measurement (mass/volume) 94 mg/dL 70-105 Serum or plasma calcium measurement (mass/volume) 9.4 mg/dL 8.5-10.1 Serum or plasma total bilirubin measurement (mass/volu me) 0.4 mg/dL 0.1-1.0 Serum or plasma alkaline phosphatase evelin surement (enzymatic activity/volume) 116 U/L 40-136 Serum or plasma aspartate aminotransfera se measurement (enzymatic activity/volume) 12 U/L 5-34 Serum or plasma alanine aminotransferase measurement (enzymatic activity/volume) 8 U/L 0-55 Serum or plasma protein measurement (mass/volume) 6.8 g/dL 6.4-8.2 Serum or plasma albumin measurement (mass/volume) 4.8 g/dL 3.2-4.5 Urine drug screening test - 11/04/18 12: 44 Urine phencyclidine detection by screening method NEGATIVE NEGATIVE Urine benzodiazepines detection by screening method NEGATIVE NEGATIVE Urine cocaine detection NEGATIVE NEGATI VE Urine amphetamines detection by screening method N EGATIVE NEGATIVE Urine methamphetamine detection by screening method NEGATIVE NEGATIVE Urine cannabinoids detection by screening method P OSITIVE NEGATIVE Urine opiates detection by screening method NEGATI VE NEGATIVE Urine barbiturates detection NEGATIVE N EGATIVE Screening urine tricyclic antidepressants detection NEGATIVE NEGATIVE Urine methadone detection by screening method NEGA TIVE NEGATIVE Urine oxycodone detection NEGATIVE NEGA TIVE Urine propoxyphene detection NEGATIVE N EGATIVE Complete urinalysis with reflex to cultu re - 11/04/18 12:44 Urine color determination YELLOW NRG Urine clarity determination CLEAR NR G Urine pH measurement by test strip 7.5 5-9 Specific gravity of urine by test strip 1.010 1.016-1.022 Urine protein assay by test strip, semi-quantitative NEGATIVE NEGATIVE Urine glucose detection by automated test strip NE GATIVE NEGATIVE Erythrocytes detection in urine sediment by light micr oscopy NEGATIVE NEGATIVE Urine ketones detection by automated test strip NE GATIVE NEGATIVE Urine nitrite detection by test strip NEGATIVE NEGATIVE Urine total bilirubin detection by test strip NEGA TIVE NEGATIVE Urine urobilinogen measurement by automated test strip (mass/volume) 0.2 mg/dL NORMAL Urine leukocyte esterase detection by dipstick NEG ATIVE NEGATIVE Automated urine sediment erythrocyte cou nt by microscopy (number/high power field) NONE NRG Automated urine sediment leukocyte count by microscopy (number/high power field) NONE NRG Bacteria detection in urine sediment by light microsco py NONE NRG Squamous epithelial cells detection in u rine sediment by light microscopy RARE NRG Crystals detection in urine sediment by light microsco py NONE NRG Casts detection in urine sediment by light microscopy NONE NRG Mucus detection in urine sediment by light microscopy NEGATIVE NRG Complete urinalysis with reflex to culture NO NRG Complete urinalysis with reflex to cultu re - 12/06/18 19:40 Urine color determination YELLOW NRG Urine clarity determination CLEAR NR G Urine pH measurement by test strip 6.0 5-9 Specific gravity of urine by test strip 1.025 1.016-1.022 Urine protein assay by test strip, semi-quantitative NEGATIVE NEGATIVE Urine glucose detection by automated test strip NE GATIVE NEGATIVE Erythrocytes detection in urine sediment by light micr oscopy NEGATIVE NEGATIVE Urine ketones detection by automated test strip NE GATIVE NEGATIVE Urine nitrite detection by test strip NEGATIVE NEGATIVE Urine total bilirubin detection by test strip NEGA TIVE NEGATIVE Urine urobilinogen measurement by automated test strip (mass/volume) 0.2 mg/dL NORMAL Urine leukocyte esterase detection by dipstick NEG ATIVE NEGATIVE Automated urine sediment erythrocyte cou nt by microscopy (number/high power field) [HPF] NRG Automated urine sediment leukocyte count by microscopy (number/high power field) [HPF] NRG Bacteria detection in urine sediment by light microsco py FEW NRG Squamous epithelial cells detection in u rine sediment by light microscopy 0-2 NRG Crystals detection in urine sediment by light microsco py NONE NRG Casts detection in urine sediment by light microscopy NONE NRG Mucus detection in urine sediment by light microscopy MODERATE NRG Complete urinalysis with reflex to culture YES NRG Bacterial urine culture - 12/06/18 19:40 Bacterial urine culture [id number] NRG COLONY COUNT 20,000 CFU/ML NRG FTX;REPORTABLE NO SUSCEPTIBILITY PERFORMED NRG Chlamydia DNA amp probe, urine - 9 19:40 Chlamydia DNA amp probe, urine Not Detected Not Detected Urine Neisseria gonorrhoeae DNA assay - 12/06/18 19:40 Gonorrhea amp DNA-urine Not Detected No t Detected Complete urinalysis with reflex to cultu re - 01/25/19 20:42 Urine color determination YELLOW NRG Urine clarity determination CLEAR NR G Urine pH measurement by test strip 6.0 5-9 Specific gravity of urine by test strip 1.025 1.016-1.022 Urine protein assay by test strip, semi-quantitative NEGATIVE NEGATIVE Urine glucose detection by automated test strip NE GATIVE NEGATIVE Erythrocytes detection in urine sediment by light micr oscopy NEGATIVE NEGATIVE Urine ketones detection by automated test strip NE GATIVE NEGATIVE Urine nitrite detection by test strip NEGATIVE NEGATIVE Urine total bilirubin detection by test strip NEGA TIVE NEGATIVE Urine urobilinogen measurement by automated test strip (mass/volume) 0.2 mg/dL NORMAL Urine leukocyte esterase detection by dipstick NEG ATIVE NEGATIVE Automated urine sediment erythrocyte cou nt by microscopy (number/high power field) NONE NRG Automated urine sediment leukocyte count by microscopy (number/high power field) [HPF] NRG Bacteria detection in urine sediment by light microsco py NEGATIVE NRG Squamous epithelial cells detection in u rine sediment by light microscopy 2-5 NRG Crystals detection in urine sediment by light microsco py NONE NRG Casts detection in urine sediment by light microscopy NONE NRG Mucus detection in urine sediment by light microscopy MODERATE NRG Complete urinalysis with reflex to culture NO NRG Complete blood count (CBC) with automate d white blood cell (WBC) differential - 01/25/19 20:42 Blood leukocytes automated count (number/volume) 8.7 10*3/uL 4.3-11.0 Blood erythrocytes automated count (number/volume) 5.00 10*6/uL 4.35-5.85 Venous blood hemoglobin measurement (mass/volume) 14.9 g/dL 13.3-17.7 Blood hematocrit (volume fraction) 45 % 40-54 Automated erythrocyte mean corpuscular volume 89 [ foz_us] 80-99 Automated erythrocyte mean corpuscular h emoglobin (mass per erythrocyte) 30 pg 25-34 Automated erythrocyte mean corpuscular h emoglobin concentration measurement (mass/volume) 33 g/dL 32-36 Automated erythrocyte distribution width ratio 12. 4 % 10.0- 14.5 Automated blood platelet count (count/volume) 290 10*3/uL 130-400 Automated blood platelet mean volume measurement 9.2 [foz_us] 7.4-10.4 Automated blood neutrophils/100 leukocytes 49 % 42-75 Automated blood lymphocytes/100 leukocytes 31 % 12-44 Blood monocytes/100 leukocytes 9 % 0-12 Automated blood eosinophils/100 leukocytes 10 % 0-10 Automated blood basophils/100 leukocytes 1 % 0-10 Blood neutrophils automated count (number/volume) 4.3 10*3 1.8-7.8 Blood lymphocytes automated count (number/volume) 2.7 10*3 1.0-4.0 Blood monocytes automated count (number/volume) 0. 8 10*3 0.0-1.0 Automated eosinophil count 0.9 10*3/uL 0 .0-0.3 Automated blood basophil count (count/volume) 0.1 10*3/uL 0.0-0.1 Urine drug screening test - 01/25/19 20: 42 Urine phencyclidine detection by screening method NEGATIVE NEGATIVE Urine benzodiazepines detection by screening method NEGATIVE NEGATIVE Urine cocaine detection NEGATIVE NEGATI VE Urine amphetamines detection by screening method N EGATIVE NEGATIVE Urine methamphetamine detection by screening method NEGATIVE NEGATIVE Urine cannabinoids detection by screening method P OSITIVE NEGATIVE Urine opiates detection by screening method NEGATI VE NEGATIVE Urine barbiturates detection NEGATIVE N EGATIVE Screening urine tricyclic antidepressants detection NEGATIVE NEGATIVE Urine methadone detection by screening method NEGA TIVE NEGATIVE Urine oxycodone detection NEGATIVE NEGA TIVE Urine propoxyphene detection NEGATIVE N EGATIVE Comprehensive metabolic panel - 01/25/19 20:42 Serum or plasma sodium measurement (moles/volume) 142 mmol/L 135-145 Serum or plasma potassium measurement (moles/volume) 4.0 mmol/L 3.6-5.0 Serum or plasma chloride measurement (moles/volume) 99 mmol/L 98-107 Carbon dioxide 28 mmol/L 21-32 Serum or plasma anion gap determination (moles/volume) 15 mmol/L 5-14 Serum or plasma urea nitrogen measurement (mass/volume ) 12 mg/dL 7-18 Serum or plasma creatinine measurement (mass/volume) 0.92 mg/dL 0.60-1.30 Serum or plasma urea nitrogen/creatinine mass ratio 13 NRG Serum or plasma creatinine measurement w ith calculation of estimated glomerular filtration rate > NRG Serum or plasma glucose measurement (mass/volume) 105 mg/dL 70-105 Serum or plasma calcium measurement (mass/volume) 9.9 mg/dL 8.5-10.1 Serum or plasma total bilirubin measurement (mass/volu me) 0.3 mg/dL 0.1-1.0 Serum or plasma alkaline phosphatase evelin surement (enzymatic activity/volume) 119 U/L 40-136 Serum or plasma aspartate aminotransfera se measurement (enzymatic activity/volume) 15 U/L 5-34 Serum or plasma alanine aminotransferase measurement (enzymatic activity/volume) 11 U/L 0-55 Serum or plasma protein measurement (mass/volume) 7.6 g/dL 6.4-8.2 Serum or plasma albumin measurement (mass/volume) 4.8 g/dL 3.2-4.5 Magnesium - 01/25/19 20:42 Magnesium 2.0 mg/dL 1.6-2.4 Lipase - 01/25/19 20:42 Lipase 36 U/L 8-78 Complete blood count (CBC) with automate d white blood cell (WBC) differential - 02/04/19 20:50 Blood leukocytes automated count (number/volume) 5.0 10*3/uL 4.3-11.0 Blood erythrocytes automated count (number/volume) 4.96 10*6/uL 4.35-5.85 Venous blood hemoglobin measurement (mass/volume) 14.8 g/dL 13.3-17.7 Blood hematocrit (volume fraction) 43 % 40-54 Automated erythrocyte mean corpuscular volume 87 [ foz_us] 80-99 Automated erythrocyte mean corpuscular h emoglobin (mass per erythrocyte) 30 pg 25-34 Automated erythrocyte mean corpuscular h emoglobin concentration measurement (mass/volume) 35 g/dL 32-36 Automated erythrocyte distribution width ratio 12. 5 % 10.0- 14.5 Automated blood platelet count (count/volume) 259 10*3/uL 130-400 Automated blood platelet mean volume measurement 9.0 [foz_us] 7.4-10.4 Automated blood neutrophils/100 leukocytes 49 % 42-75 Automated blood lymphocytes/100 leukocytes 22 % 12-44 Blood monocytes/100 leukocytes 19 % 0-12 Automated blood eosinophils/100 leukocytes 9 % 0-10 Automated blood basophils/100 leukocytes 1 % 0-10 Blood neutrophils automated count (number/volume) 2.5 10*3 1.8-7.8 Blood lymphocytes automated count (number/volume) 1.1 10*3 1.0-4.0 Blood monocytes automated count (number/volume) 1. 0 10*3 0.0-1.0 Automated eosinophil count 0.5 10*3/uL 0 .0-0.3 Automated blood basophil count (count/volume) 0.0 10*3/uL 0.0-0.1 Comprehensive metabolic panel - 02/04/19 20:50 Serum or plasma sodium measurement (moles/volume) 137 mmol/L 135-145 Serum or plasma potassium measurement (moles/volume) 3.9 mmol/L 3.6-5.0 Serum or plasma chloride measurement (moles/volume) 103 mmol/L 98-107 Carbon dioxide 23 mmol/L 21-32 Serum or plasma anion gap determination (moles/volume) 11 mmol/L 5-14 Serum or plasma urea nitrogen measurement (mass/volume ) 16 mg/dL 7-18 Serum or plasma creatinine measurement (mass/volume) 0.83 mg/dL 0.60-1.30 Serum or plasma urea nitrogen/creatinine mass ratio 19 NRG Serum or plasma creatinine measurement w ith calculation of estimated glomerular filtration rate > NRG Serum or plasma glucose measurement (mass/volume) 98 mg/dL 70-105 Serum or plasma calcium measurement (mass/volume) 9.2 mg/dL 8.5-10.1 Serum or plasma total bilirubin measurement (mass/volu me) 0.6 mg/dL 0.1-1.0 Serum or plasma alkaline phosphatase evelin surement (enzymatic activity/volume) 137 U/L 40-136 Serum or plasma aspartate aminotransfera se measurement (enzymatic activity/volume) 22 U/L 5-34 Serum or plasma alanine aminotransferase measurement (enzymatic activity/volume) 14 U/L 0-55 Serum or plasma protein measurement (mass/volume) 7.3 g/dL 6.4-8.2 Serum or plasma albumin measurement (mass/volume) 4.5 g/dL 3.2-4.5 CALCIUM CORRECTED 8.8 mg/dL 8.5-10.1 Lipase - 02/04/19 20:50 Lipase 24 U/L 8-78 Manual absolute plasma cell count - 01/09 01/26 20:50 Blood monocytes/100 leukocytes 14 % NRG Manual blood segmented neutrophils/100 leukocytes 47 % NRG Blood band neutrophils/100 leukocytes 9 % NRG Manual blood lymphocytes/100 leukocytes 20 % NRG Manual eosinophils/100 leukocytes in nose 10 % NRG Blood anisocytosis detection by light microscopy S LIGHT NRG Blood erythrocyte morphology finding identification NORMAL NRG Blood dohle body detection by light microscopy SLI GHT NRG Complete urinalysis with reflex to cultu re - 02/04/19 20:58 Urine color determination YELLOW NRG Urine clarity determination CLEAR NR G Urine pH measurement by test strip 6 5-9 Specific gravity of urine by test strip 1.020 1.016-1.022 Urine protein assay by test strip, semi-quantitative 2+ NEGATIVE Urine glucose detection by automated test strip NE GATIVE NEGATIVE Erythrocytes detection in urine sediment by light micr oscopy NEGATIVE NEGATIVE Urine ketones detection by automated test strip NE GATIVE NEGATIVE Urine nitrite detection by test strip NEGATIVE NEGATIVE Urine total bilirubin detection by test strip 1+ NEGATIVE Urine urobilinogen measurement by automated test strip (mass/volume) 4 mg/dL NORMAL Urine leukocyte esterase detection by dipstick 1+ NEGATIVE Automated urine sediment erythrocyte cou nt by microscopy (number/high power field) NONE NRG Automated urine sediment leukocyte count by microscopy (number/high power field) RARE NRG Bacteria detection in urine sediment by light microsco py MODERATE NRG Crystals detection in urine sediment by light microsco py NONE NRG Casts detection in urine sediment by light microscopy NONE NRG Mucus detection in urine sediment by light microscopy LARGE NRG Complete urinalysis with reflex to culture NO NRG GC/CHLAMYDIA (SWAB OR URINE)-RAPID - 19:00 CHLAMYDIA TRACHOMATIS RNA, TMA NOT DETECTED NOT DETECTED NEISSERIA GONORRHOEAE RNA, TMA NOT DETECTED NOT DETECTED COMMENT NRG Complete urinalysis with reflex to cultu re - 10/26/19 16:32 Urine color determination YELLOW NRG Urine clarity determination CLEAR NR G Urine pH measurement by test strip 7.0 5-9 Specific gravity of urine by test strip 1.020 1.016-1.022 Urine protein assay by test strip, semi-quantitative NEGATIVE NEGATIVE Urine glucose detection by automated test strip NE GATIVE NEGATIVE Erythrocytes detection in urine sediment by light micr oscopy NEGATIVE NEGATIVE Urine ketones detection by automated test strip NE GATIVE NEGATIVE Urine nitrite detection by test strip NEGATIVE NEGATIVE Urine total bilirubin detection by test strip NEGA TIVE NEGATIVE Urine urobilinogen measurement by automated test strip (mass/volume) 1.0 mg/dL < = 1.0 Urine leukocyte esterase detection by dipstick NEG ATIVE NEGATIVE Automated urine sediment erythrocyte cou nt by microscopy (number/high power field) NONE NRG Automated urine sediment leukocyte count by microscopy (number/high power field) NONE NRG Bacteria detection in urine sediment by light microsco py NONE NRG Squamous epithelial cells detection in u rine sediment by light microscopy 0-2 NRG Crystals detection in urine sediment by light microsco py NONE NRG Casts detection in urine sediment by light microscopy NONE NRG Mucus detection in urine sediment by light microscopy NEGATIVE NRG Complete urinalysis with reflex to culture NO NRG Urine drug screening test - 10/26/19 16: 32 Urine phencyclidine detection by screening method NEGATIVE NEGATIVE Urine benzodiazepines detection by screening method NEGATIVE NEGATIVE Urine cocaine detection NEGATIVE NEGATI VE Urine amphetamines detection by screening method N EGATIVE NEGATIVE Urine methamphetamine detection by screening method NEGATIVE NEGATIVE Urine cannabinoids detection by screening method P OSITIVE NEGATIVE Urine opiates detection by screening method NEGATI VE NEGATIVE Urine barbiturates detection NEGATIVE N EGATIVE Screening urine tricyclic antidepressants detection NEGATIVE NEGATIVE Urine methadone detection by screening method NEGA TIVE NEGATIVE Urine oxycodone detection NEGATIVE NEGA TIVE Urine propoxyphene detection NEGATIVE N EGATIVE Complete blood count (CBC) with automate d white blood cell (WBC) differential - 10/26/19 17:25 Blood leukocytes automated count (number/volume) 8.4 10*3/uL 4.3-11.0 Blood erythrocytes automated count (number/volume) 4.83 10*6/uL 4.35-5.85 Venous blood hemoglobin measurement (mass/volume) 14.4 g/dL 13.3-17.7 Blood hematocrit (volume fraction) 43 % 40-54 Automated erythrocyte mean corpuscular volume 89 [ foz_us] 80-99 Automated erythrocyte mean corpuscular h emoglobin (mass per erythrocyte) 30 pg 25-34 Automated erythrocyte mean corpuscular h emoglobin concentration measurement (mass/volume) 34 g/dL 32-36 Automated erythrocyte distribution width ratio 12. 3 % 10.0- 14.5 Automated blood platelet count (count/volume) 330 10*3/uL 130-400 Automated blood platelet mean volume measurement 8.6 [foz_us] 7.4-10.4 Automated blood neutrophils/100 leukocytes 66 % 42-75 Automated blood lymphocytes/100 leukocytes 20 % 12-44 Blood monocytes/100 leukocytes 8 % 0-12 Automated blood eosinophils/100 leukocytes 5 % 0-10 Automated blood basophils/100 leukocytes 1 % 0-10 Blood neutrophils automated count (number/volume) 5.5 10*3 1.8-7.8 Blood lymphocytes automated count (number/volume) 1.7 10*3 1.0-4.0 Blood monocytes automated count (number/volume) 0. 7 10*3 0.0-1.0 Automated eosinophil count 0.4 10*3/uL 0 .0-0.3 Automated blood basophil count (count/volume) 0.1 10*3/uL 0.0-0.1 Comprehensive metabolic panel - 10/26/19 17:25 Serum or plasma sodium measurement (moles/volume) 140 mmol/L 135-145 Serum or plasma potassium measurement (moles/volume) 4.2 mmol/L 3.6-5.0 Serum or plasma chloride measurement (moles/volume) 102 mmol/L 98-107 Carbon dioxide 27 mmol/L 21-32 Serum or plasma anion gap determination (moles/volume) 11 mmol/L 5-14 Serum or plasma urea nitrogen measurement (mass/volume ) 11 mg/dL 7-18 Serum or plasma creatinine measurement (mass/volume) 0.75 mg/dL 0.60-1.30 Serum or plasma urea nitrogen/creatinine mass ratio 15 NRG Serum or plasma creatinine measurement w ith calculation of estimated glomerular filtration rate > NRG Serum or plasma glucose measurement (mass/volume) 105 mg/dL 70-105 Serum or plasma calcium measurement (mass/volume) 9.6 mg/dL 8.5-10.1 Serum or plasma total bilirubin measurement (mass/volu me) 0.4 mg/dL 0.1-1.0 Serum or plasma alkaline phosphatase evelin surement (enzymatic activity/volume) 134 U/L 40-136 Serum or plasma aspartate aminotransfera se measurement (enzymatic activity/volume) 13 U/L 5-34 Serum or plasma alanine aminotransferase measurement (enzymatic activity/volume) 11 U/L 0-55 Serum or plasma protein measurement (mass/volume) 7.3 g/dL 6.4-8.2 Serum or plasma albumin measurement (mass/volume) 4.6 g/dL 3.2-4.5 Serum or plasma salicylates measurement (mass/volume) - 10/26/19 17:25 Serum or plasma salicylates measurement (mass/volume) < mg/dL 5.0-20.0 Serum or plasma acetaminophen measuremen t (mass/volume) - 10/26/19 17:25 Serum or plasma acetaminophen measurement (mass/volume ) < ug/mL 10-30 Serum or plasma ethanol measurement (mas s/volume) - 10/26/19 17:25 Serum or plasma ethanol measurement (mass/volume) < mg/dL <10 Encounters ACCT No. Visit Date/Time Discharge Status Pt. Type Provider Facility Loc./Unit Complaint [id number] 06/09/2019 14:20:00 06/09/2019 23:59: 59 [facility] [address] [id number] 04/01/2019 13:20:00 Document Registration [id number] 04/16/2019 07:39:00 09:30:00 DIS Emergency GABRIELLA LAGUNAS, ESTHER Angulo [facility] ER FS LT ANKLE PAIN [id number] 02/23/2019 23:32:00 00:03:00 DIS Outpatient LUMA DAILY MD [facility] ER FS TROUBLE BREATHING [id number] 02/22/2019 04:35:00 05:05:00 DIS Outpatient YUDITH EVANS DO [facility] ER FS RASH [id number] 02/21/2019 12:36:00 13:05:00 DIS Outpatient KARLA STEVE MD [facility] ER FS SOMETHING IN RT EYE - C ANT SEE OUT OF IT [id number] 02/04/2019 19:56:00 019 22:40:00 DIS Emergency GABRIELLA LAGUNAS, ESTHER Angulo [facility] ER SORE THROAT, VO MITTING, WEAKNESS [id number] 01/25/2019 20:37:00 21:33:00 DIS Outpatient PONCE LAGUNAS, SAMANTA Cardona [facility] ER FS CHEST PAIN,WEAKNESS,DIZ ZINESS [id number] 12/06/2018 19:32:00 20:30:00 DIS Outpatient JANINA ALCANTAR DO [facility] ER FS URINARY PAIN [id number] 11/04/2018 11:19:00 14:12:00 DIS Emergency LAURA GARCIA DO [facility] ER FS ABD PAIN [id number] 10/26/2019 17:31:00 Document Registration
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
--- NOTE | 2019-10-26 18:33 | NUR ---
weapons officer naval activity here to speak with patient.
--- NOTE | 2019-10-26 18:48 | NUR ---
Patient provided a sandwich and water at this time.
--- NOTE | 2019-10-26 19:22 | NUR ---
pt. talking with [facility] at this time.
[2019-10-26 19:39] VITALS: BP 118/67
--- NOTE | 2019-10-26 19:43 | NUR ---
pt. will sign the agreement between him and the [facility] and be discharged to home.
== END 2019-10-26 19:59 | disposition home or self-care (01) ==
LOC: EDUNIT# 16:20 → ER FS 16:21
DX: R45.851 Suicidal ideations (principal); Z88.8 Allergy status to other drugs, medicaments and biological substances; Z79.52 Long term (current) use of systemic steroids; Z77.22 Contact with and (suspected) exposure to environmental tobacco smoke (acute) (chronic)
CPT/HCPCS: 36415; 80053; 80306; 80320; 80329; 81000; 85025

== ENCOUNTER 2019-11-16 10:37 | Emergency (ER) | payer OTHER ==
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
[2019-11-16 11:06] LABS: WHITE BLOOD COUNT 5.7 10^3/uL (4.3-11.0)
[2019-11-16 11:07] LABS: BASOPHILS % (AUTO) 1 % (0-10); EOSINOPHILS % (AUTO) 8 % (0-10); HEMATOCRIT 43 % (40-54); HEMOGLOBIN 14.6 G/DL (13.3-17.7); LYMPHOCYTES # (AUTO) 2.1 X 10^3 (1.0-4.0); LYMPHOCYTES % (AUTO) 36 % (12-44); MEAN CORPUSCULAR HEMOGLOBIN 30 PG (25-34); MEAN CORPUSCULAR HGB CONC 34 G/DL (32-36); MEAN CORPUSCULAR VOLUME 87 FL (80-99); MEAN PLATELET VOLUME 8.8 FL (7.4-10.4); MONOCYTES # (AUTO) 0.5 X 10^3 (0.0-1.0); MONOCYTES % (AUTO) 8 % (0-12); NEUTROPHILS # (AUTO) 2.6 X 10^3 (1.8-7.8); NEUTROPHILS % (AUTO) 46 % (42-75); PLATELET COUNT 323 10^3/uL (130-400); RED CELL DISTRIBUTION WIDTH 12.1 % (10.0-14.5)
[2019-11-16 11:08] LABS: BASOPHILS # (AUTO) 0.1 10^3/uL (0.0-0.1); EOSINOPHILS # (AUTO) 0.4 10^3/uL (0.0-0.3)
[2019-11-16 11:21] LABS: CLARITY,URINE CLEAR; COLOR,URINE DARK YELLOW
[2019-11-16 11:22] LABS: BILIRUBIN,URINE 1+ (NEGATIVE); GLUCOSE, URINE (UA) NEGATIVE (NEGATIVE); KETONES,URINE 1+ (NEGATIVE); LEUKOCYTE ESTERASE ,URINE NEGATIVE (NEGATIVE); NITRITE,URINE NEGATIVE (NEGATIVE); PROTEIN,URINE TRACE (NEGATIVE)
[2019-11-16 11:23] LABS: BACTERIA,URINE NEGATIVE /HPF; SQUAMOUS EPITHELIAL CELL,UR RARE /HPF; WBC,URINE 0-2 /HPF
[2019-11-16 11:24] LABS: AMPHETAMINE SCREEN, URINE POSITIVE (NEGATIVE); BARBITURATE SCREEN URINE NEGATIVE (NEGATIVE); BENZODIAZEPINES SCREEN URINE NEGATIVE (NEGATIVE); CANNABINOID SCREEN, URINE POSITIVE (NEGATIVE); COCAINE SCREEN URINE NEGATIVE (NEGATIVE); METHADONE STAT NEGATIVE (NEGATIVE); METHAMPHETAMINE SCREEN URINE S POSITIVE (NEGATIVE); OPIATE SCREEN URINE NEGATIVE (NEGATIVE); OXYCODONE STAT NEGATIVE (NEGATIVE); PROPOXYPHENE STAT NEGATIVE (NEGATIVE); TRICYCLIC ANTIDEPRESSANTS SCRE NEGATIVE (NEGATIVE)
[2019-11-16 11:42] LABS: SODIUM 143 MMOL/L (135-145)
[2019-11-16 11:43] LABS: ALANINE AMINOTRANSFERASE 13 U/L (0-55); ALKALINE PHOSPHATASE 139 U/L (40-136); BILIRUBIN,TOTAL 0.9 MG/DL (0.1-1.0); BUN/CREATININE RATIO 12; CALCIUM 9.5 MG/DL (8.5-10.1); CARBON DIOXIDE 21 MMOL/L (21-32); CHLORIDE 107 MMOL/L (98-107); CREATININE SERUM 0.98 MG/DL (0.60-1.30); GFR ESTIMATED > 60; GLUCOSE 97 MG/DL (70-105); POTASSIUM 3.7 MMOL/L (3.6-5.0)
[2019-11-16 11:44] LABS: ACETAMINOPHEN < 10 UG/ML (10-30); ALBUMIN 4.5 GM/DL (3.2-4.5); SALICYLATE < 0.3 MG/DL (5.0-20.0); TOTAL PROTEIN 7.1 GM/DL (6.4-8.2)
--- NOTE | 2019-11-16 11:50 | NUR ---
[facility] was called at this time that the patient needs to be screened.
--- NOTE | 2019-11-16 12:06 | NUR ---
[facility] called at this time. Zoom number was provided. Pt was given laptop for psych eval via zoom.
--- NOTE | 2019-11-16 12:50 | NUR ---
Chele finished screening and he wants pt to be booked into care home and once the meth is out of his system (before he is released from care home) to be screened again. He needs to be on suicide precautions.
[2019-11-16 13:06] VITALS: BP 116/55
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
== END 2019-11-16 13:07 ==
LOC: EDUNIT# 10:37 → ER FS 10:39
DX: R45.851 Suicidal ideations (principal); F32.9 Major depressive disorder, single episode, unspecified; F15.10 Other stimulant abuse, uncomplicated; Z88.8 Allergy status to other drugs, medicaments and biological substances; Z77.22 Contact with and (suspected) exposure to environmental tobacco smoke (acute) (chronic); Z79.52 Long term (current) use of systemic steroids
CPT/HCPCS: 36415; 80053; 80306; 80320; 80329; 81000; 85025; 93005

== ENCOUNTER 2020-02-14 14:30 | Emergency (ER) | payer SELFPAY | END 2020-02-14 14:40 | disposition left against medical advice (07) | LOC: EDUNIT# 14:30 → ER FS 14:40 | DX: M79.89 Other specified soft tissue disorders (principal) ==

== ENCOUNTER 2020-02-19 22:05 | Emergency (ER) | payer SELFPAY ==
[~2020-02-19] VITALS: Ht 177 cm; Wt 54.0 kg
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
[2020-02-19] MEDS ORDERED: DICL75TA2 PO (22:39)
[2020-02-19] MEDS ORDERED: POLY17PO6 PO (22:39)
[2020-02-19 22:50] VITALS: BP 115/62
--- NOTE | 2020-02-20 06:53 | Diagnostic Imaging Report ---
Indication: Abdominal pain Upright and supine KUB 10:24 PM Lung bases are clear. There is no intraperitoneal free air. Bowel gas pattern is normal. There are no pathologic masses or calcifications. IMPRESSION: Negative abdomen Dictated by: Dictated on workstation # [id number]
--- NOTE | 2020-02-20 07:04 | Diagnostic Imaging Report ---
Indication: Right foot pain 3 views of the right foot shows a nondisplaced impacted fracture of the head of the proximal phalanx of the 4th toe. Age of the fractures of indeterminate. IMPRESSION: Deformity of the head of the proximal phalanx of the right 4th toe consistent with a fracture of indeterminate age. Dictated by: Dictated on workstation # [id number]
== END 2020-02-19 22:50 | disposition home or self-care (01) ==
LOC: EDUNIT# 22:05 → ER FS 22:07
DX: S92.514A Nondisplaced fracture of proximal phalanx of right lesser toe(s), initial encounter for closed fracture (principal); K59.00 Constipation, unspecified; F41.9 Anxiety disorder, unspecified; F17.210 Nicotine dependence, cigarettes, uncomplicated; Z88.8 Allergy status to other drugs, medicaments and biological substances; Z79.52 Long term (current) use of systemic steroids; W28.XXXA Contact with powered lawn mower, initial encounter
CPT/HCPCS: 73630; 74019

== ENCOUNTER 2020-03-13 16:59 | Emergency (ER) | payer SELFPAY ==
[~2020-03-13] VITALS: Ht 182 cm; Wt 61.1 kg
[~2020-03-13 16:59] MED LIST changes: +DICL75TA2 PO; +POLY17PO6 PO
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
[2020-03-13 17:29] LABS: AMPHETAMINE SCREEN, URINE POSITIVE (NEGATIVE); BARBITURATE SCREEN URINE NEGATIVE (NEGATIVE); BENZODIAZEPINES SCREEN URINE NEGATIVE (NEGATIVE); CANNABINOID SCREEN, URINE POSITIVE (NEGATIVE); COCAINE SCREEN URINE NEGATIVE (NEGATIVE); METHADONE STAT NEGATIVE (NEGATIVE); METHAMPHETAMINE SCREEN URINE S NEGATIVE (NEGATIVE); OPIATE SCREEN URINE NEGATIVE (NEGATIVE); OXYCODONE STAT NEGATIVE (NEGATIVE); PROPOXYPHENE STAT NEGATIVE (NEGATIVE); TRICYCLIC ANTIDEPRESSANTS SCRE NEGATIVE (NEGATIVE)
[2020-03-13 17:45] LABS: CLARITY,URINE CLOUDY; COLOR,URINE YELLOW
[2020-03-13 17:46] LABS: BACTERIA,URINE FEW /HPF; BILIRUBIN,URINE NEGATIVE (NEGATIVE); GLUCOSE, URINE (UA) NEGATIVE (NEGATIVE); KETONES,URINE TRACE (NEGATIVE); LEUKOCYTE ESTERASE ,URINE 2+ (NEGATIVE); NITRITE,URINE NEGATIVE (NEGATIVE); PROTEIN,URINE NEGATIVE (NEGATIVE); WBC,URINE >100 /HPF
[2020-03-13] MEDS ORDERED: LIDOCAINE 1% INJ 20 ML 20 ML VIAL ONE (18:13)
[2020-03-13] MEDS ORDERED: DOXY100T2 PO (18:13)
[2020-03-13] MEDS ORDERED: cefTRIAXone FOR IV USE 500 MG in WATER (STERILE) FOR INJECTION 5 ML IV ONE (18:15)
[2020-03-13] MEDS ORDERED: cefTRIAXone 250 MG/ML vial (IM ONLY) IM ONE (18:15)
[2020-03-13 18:34] VITALS: BP 125/76
== END 2020-03-13 18:30 | disposition home or self-care (01) ==
LOC: EDUNIT# 16:59 → ER FS 17:01
DX: A64 Unspecified sexually transmitted disease (principal); N39.0 Urinary tract infection, site not specified; F41.9 Anxiety disorder, unspecified; Z77.22 Contact with and (suspected) exposure to environmental tobacco smoke (acute) (chronic); Z79.52 Long term (current) use of systemic steroids; Z88.8 Allergy status to other drugs, medicaments and biological substances
CPT/HCPCS: 36415; 80306; 81000; 87088; 87491; 87591; 99284

== ENCOUNTER 2021-01-26 04:28 | Emergency (ER) | payer SELFPAY ==
[~2021-01-26] VITALS: Ht 183 cm; Wt 68.0 kg
[~2021-01-26 04:28] MED LIST changes: -OMEP40CA27 PO; +OMEP40CA6 PO
[2021-01-26 04:30] VITALS: BP 126/84
[2021-01-26] MEDS ORDERED: PENI500T PO (04:47)
[2021-01-26] MEDS ORDERED: NAPR-1071 PO (04:47)
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
== END 2021-01-26 04:53 | disposition home or self-care (01) ==
LOC: EDUNIT# 04:28 → ER FS 04:29
DX: K02.9 Dental caries, unspecified (principal); F10.129 Alcohol abuse with intoxication, unspecified; Z79.52 Long term (current) use of systemic steroids
CPT/HCPCS: 99282

== ENCOUNTER 2021-02-28 00:11 | Emergency (ER) | payer SELFPAY ==
[~2021-02-28] VITALS: Ht 177.8 cm; Wt 73.0 kg
[~2021-02-28 00:11] MED LIST changes: +NAPR-1071 PO; +PENI500T PO
[2021-02-28] MEDS ORDERED: CLOT15CR28 TP (00:25)
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
[2021-02-28 00:29] VITALS: BP 122/65
== END 2021-02-28 00:29 | disposition home or self-care (01) ==
LOC: EDUNIT# 00:11 → ER FS 00:15
DX: B35.6 Tinea cruris (principal); Z72.0 Tobacco use; Z79.52 Long term (current) use of systemic steroids
CPT/HCPCS: 99283

== ENCOUNTER 2021-03-26 17:10 | Emergency (ER) | payer SELFPAY ==
[~2021-03-26] VITALS: Ht 182.9 cm; Wt 63.5 kg
[~2021-03-26 17:10] MED LIST changes: +CLOT15CR28 TP
[2021-03-26 17:18] VITALS: BP 100/70
[2021-03-26] MEDS ORDERED: NAPR-1071 PO (17:20)
[2021-03-26] MEDS ORDERED: PENI500T PO (17:20)
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
== END 2021-03-26 17:23 | disposition home or self-care (01) ==
LOC: EDUNIT# 17:10 → ER FS 17:11
DX: K02.9 Dental caries, unspecified (principal); Z79.52 Long term (current) use of systemic steroids
CPT/HCPCS: 99282

== ENCOUNTER 2022-01-01 23:28 | Emergency (ER) | payer SELFPAY ==
[~2022-01-01] VITALS: Ht 177.8 cm; Wt 60.0 kg
[2022-01-02] MEDS ORDERED: ONDANSETRON 4 MG (ZOFRAN) ORAL DISSOLVE TAB PO STA (00:01)
[2022-01-02] MEDS ORDERED: ONDA4TAB11 PO (00:06)
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
[2022-01-02 00:10] VITALS: BP 112/70
[2022-01-02] MEDS ORDERED: FAMOTIDINE 20 MG (PEPCID) TABLET PO ONE (00:15)
== END 2022-01-02 00:10 | disposition home or self-care (01) ==
LOC: EDUNIT# 23:28 → ER FS 23:31
DX: R11.2 Nausea with vomiting, unspecified (principal); R19.7 Diarrhea, unspecified; F17.210 Nicotine dependence, cigarettes, uncomplicated; Z28.310 Unvaccinated for COVID-19
CPT/HCPCS: 99283

== ENCOUNTER 2022-06-29 08:29 | Emergency (ER) | payer SELFPAY ==
[~2022-06-29] VITALS: Ht 182.9 cm; Wt 54.4 kg
[2022-06-29] MEDS ORDERED: FAMOTIDINE 20 MG (PEPCID) TABLET PO ONE (10:15)
[2022-06-29] MEDS ORDERED: ONDANSETRON 4 MG/2 ML (SDV) Z0FRAN IVP ONE (10:15)
[2022-06-29] MEDS ORDERED: ONDA4TAB11 SL ×2 (10:18→11:06)
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
[2022-06-29 10:26] VITALS: BP 129/67
== END 2022-06-29 10:26 | disposition home or self-care (01) ==
LOC: EDUNIT# 08:29 → ER 08:33
DX: R11.2 Nausea with vomiting, unspecified (principal); R10.13 Epigastric pain; F17.210 Nicotine dependence, cigarettes, uncomplicated; Z20.822 Contact with and (suspected) exposure to COVID-19; Z28.310 Unvaccinated for COVID-19
CPT/HCPCS: 87636; 99283

== ENCOUNTER 2022-07-06 09:12 | Emergency (ER) | payer SELFPAY ==
[~2022-07-06] VITALS: Ht 182.8 cm; Wt 63.5 kg
[~2022-07-06 09:12] MED LIST changes: +ONDA4TAB11 SL
[2022-07-06 09:15] VITALS: BP 121/79
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
[2022-07-06] MEDS ORDERED: ACHD5005 PO (10:15)
[2022-07-06] MEDS ORDERED: AMOX500C2 PO (10:15)
[2022-07-06] MEDS ORDERED: LIDOCAINE 2% VISCOUS 15 ML UDC MM ONE (10:15)
== END 2022-07-06 10:24 | disposition home or self-care (01) ==
LOC: EDUNIT# 09:12 → ER 09:13
DX: K02.9 Dental caries, unspecified (principal); F17.210 Nicotine dependence, cigarettes, uncomplicated
CPT/HCPCS: 99283

== ENCOUNTER 2022-11-21 09:28 | Emergency (ER) | payer SELFPAY ==
[~2022-11-21 09:28] MED LIST changes: +ACHD5005 PO; +AMOX500C2 PO
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
== END 2022-11-21 09:35 | disposition left against medical advice (07) ==
LOC: EDUNIT# 09:28 → ER 09:31
DX: S05.90XA Unspecified injury of unspecified eye and orbit, initial encounter (principal); Z28.310 Unvaccinated for COVID-19; X58.XXXA Exposure to other specified factors, initial encounter